=== PATIENT | female | born 1970 | race Caucasian/White ===

== ENCOUNTER 2018-09-24 04:21 | Inpatient (IN) | payer OTHER, SELFPAY ==
[2018-09-24] VITALS (22 sets, daily range): BP systolic 85–162; BP diastolic 64–97; PULSE 52–73; RESP 12–24; TEMP 36.4–36.7; O2SAT 93–100; BMI 47.9; BMI 45.6
[2018-09-24] MEDS: Ondansetron 4 MG/2 ML Vial IV (04:25)
[2018-09-24] MEDS: Heparin Injection (Vial) 5,000 UNIT/ML VIAL 4000 UNIT IV (04:26)
--- NOTE | 2018-09-24 04:26 | ED.RN ---
DR CRUZ AT BEDSIDE REPORT TO SUPERVISOR TYPE DISK QUALITY CONTROL
[2018-09-24] MEDS: TICAGRELOR 90 MG TABLET 180 MG PO (04:30)
--- NOTE | 2018-09-24 04:31 | RAD_ITS ---
STUDY: X-RAY CHEST REASON FOR EXAM: Female, 48 years old. Chest pain TECHNIQUE: Single frontal view of the chest. COMPARISON: None. FINDINGS: The lungs are clear and expanded. There is no demonstrated pleural abnormality. Prominent cardiac silhouette. Normal mediastinum and rupa. Normal visualized pulmonary arteries. Normal visualized aortic arch and descending thoracic aorta. Normal visualized thoracic spine. Normal visualized ribs, clavicles, and shoulders. There is no demonstrated abnormality of the visualized soft tissue structures of the upper abdomen. RAD/Chest 1 View (Portable) IMPRESSION: No acute pulmonary findings. Electronically Signed: Parth Fletcher MD at 5:00 EST Tel , Service support ,
--- NOTE | 2018-09-24 04:32 | ED.VISSUMM ---
- ER Visit Summary Date of Service: 09/24/18 Chief Complaint: Chest pain History of Present Illness: The patient is a 48 F who presents as a prehospital activation of code STEMI with severe chest pain. Onset was 1 hour prior to arrival. Pain is substernal and radiates into bilateral arms and left jaw as well as back. Pain is currently 6 out of 10. Patient was given aspirin by EMS. She has not had any nitro. EKG suggested an inferior STEMI, thus EMS did not give nitro prehospital. Repeat prehospital EKG was concerning for anterolateral STEMI. Patient has history of prior STEMI with stent placement. She is not on Plavix at this time. Also history of hypertension, smoking, and intestines on the outside when born. Physical Examination: Vital signs: afebrile, hypotensive and bradycardic, 93% on nasal cannula General: well nourished, well developed, obese, in moderate distress Skin: warm, dry, no rash, mild perioral and acral cyanosis HEENT: normocephalic and atraumatic; PERRL, EOMI, moist mucous membranes Cardiovascular: Bradycardic rate and rhythm without murmurs, no peripheral edema, dopplerable pulses all distal extremities Respiratory: lungs are clear to auscultation bilaterally, no rales, rhonchi or wheezing Abdominal: Abdomen is soft, nontender with normoactive bowel sounds, no guarding or rebound, no masses, multiple surgical scars MSK: Moves all extremities, no deformities, normal strength Neuro: Awake and alert, oriented ?4. No facial droop, sensation and motor function intact and symmetric Test Results: [] Emergency Department Course and Treatment: Patient's prehospital EKG was suggestive of an inferior ST elevation myocardial infarction, however the tracing was poor. A repeat EKG by prehospital EMS showed significant ST elevation in V1 through V6 with reciprocal depression in the inferior leads. Also elevation in aVL. Dr. Correa was consulted. STEMI was called and Sas Administrator activated. Patient was given Brilinta and heparin bolus. Repeat EKG while awaiting Sas Administrator showed a sinus rhythm, rate of 58, ST depression in V1 and ST elevation in 2 and aVF. Patient was elevuated by Dr. Correa in the ED and transferred to the Sas Administrator for definitive intervention. Critical care time of 35 minutes for initial evaluation and stabilization, interpretation of prehospital EKGs, coordination of care, discussion with hospitalist and cardiac interventionalist, and documentation. Treatment Plan: [] Disposition: [] Impression: STEMI This note was generated with Zoomdata dictation software. It may contain incorrect words, spelling, and punctuation that were not noted in review of the chart prior to signing ED Disposition - Plan for ED Patient: Disposition: Acute Care Hospital [facility] Chief Complaint: Chest Pain
--- NOTE | 2018-09-24 04:35 | ED.RN ---
UNABLE TO OBTAIN PEDAL PULSES AT THIS TIME, RADIAL PULSES FELT
--- NOTE | 2018-09-24 04:37 | ED.DCSUM_ITS ---
- ER Visit Summary Date of Service: 09/24/18 Chief Complaint: Chest pain History of Present Illness: The patient is a 48 F who presents as a prehospital activation of code STEMI with severe chest pain. Onset was 1 hour prior to arrival. Pain is substernal and radiates into bilateral arms and left jaw as w ell as back. Pain is currently 6 out of 10. Patient was given aspirin by EMS. She has not had any nitro. EKG suggested an inferior STEMI, thus EMS did not give nitro prehospital. Repeat prehospital EKG was concerning for anterolateral STEMI. Patient has history of prior STEMI with stent placement. She is not on Plavix at this time. Also history of hypertension, smoking, and intestines on the outside when born. Physical Examination: Vital signs: afebrile, hypotensive and bradycardic, 93% on nasal cannula General: well nourished, well developed, obese, in moderate distress Skin: warm, dry, no rash, mild perioral and acral cyanosis HEENT: normocephalic and atraumatic; PERRL, EOMI, moist mucous membranes Cardiovascular: Bradycardic rate and rhythm without murmurs, no peripheral edema, dopplerable pulses all distal extremities Respiratory: lungs are clear to auscultation bilaterally, no rales, rhonchi or wheezing Abdominal: Abdomen is soft, nontender with normoactive bowel sounds, no guarding or rebound, no masses, multiple surgical scars MSK: Moves all extremities, no deformities, normal strength Neuro: Awake and alert, oriented ?4. No facial droop, sensation and motor function intact and symmetric Test Results: [] Emergency Department Course and Treatment: Patient's prehospital EKG was suggestive of an inferior ST elevation myocardial infarction, however the tracing was poor. A repeat EKG by prehospital EMS showed significant ST elevation in V1 through V6 with reciprocal depression in the inferior leads. Also elevation in aVL. Dr. Correa was consulted. STEMI was called and Technical Product Manager activated. Patient was given Brilinta and heparin bolus. Repeat EKG while awaiting Technical Product Manager showed a sinus rhythm, rate of 58, ST depression in V1 and ST elevation in 2 and aVF. Patient was elevuated by Dr. Correa in the ED and transferred to the Technical Product Manager for definitive intervention. Critical care time of 35 minutes for initial evaluation and stabilization, interpretation of prehospital EKGs, coordination of care, discussion with hospitalist and cardiac interventionalist, and documentation. Treatment Plan: [] Disposition: [] Impression: STEMI This note was generated with Jaxtr dictation software. It may contain incorrect words, spelling, and punctuation that were not noted in review of the chart prior to signing ED Disposition - Plan for ED Patient: Disposition: Acute Care Hospital [facility] Chief Complaint: Chest Pain
--- NOTE | 2018-09-24 04:40 | ED.RN ---
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
--- NOTE | 2018-09-24 04:45 | HP.PCM_ITS ---
Problem List (1) STEMI (ST elevation myocardial infarction) Status: Acute History of Present Illness Date of Admission: 09/24/18 Chief Complaint: CHEST PAIN The patient is a 48 year old F with a significant history of epilepsy; CAD status post coronary stents about 3 and half years ago who was brought to the Emergency Department by the squad because of excruciating substernal episodic sharp chest pain that radiated to her left jaw and into her bilateral arms and back. Associated with her symptoms abdominal pain, nausea, vomiting, diaphoresis and shortness of breath. Her symptoms started about an hour prior to presentation. She was given 4 baby aspirin by the paramedics. Because initial EKG showed likely inferior ID nitroglycerin was not given by paramedics. Subsequent EKG showed anterior ST elevation. STEMI alert was called. At Emergency department patient's systolic blood pressure was found to be 96; and a pulse was 54. IV bolus of normal saline was started at emergency department. Patient was given heparin; and Brilinta. Patient was seen at emergency department by import specialist Dr. Correa. EKG done at our emergency department showed sinus bradycardia without ST elevations. Patient was sent to the [facility]. Patient is on home aspirin. She reported that she used to be on Plavix but her import specialist,Dr. Shea, took her off Plavix after 1 year of her ID. Patient reported that her mother had a heart attack in her sixties. Past Medical History Medical History: Medical History (Last Reviewed 09/24/18 @ 05:07 by Reymundo Kerr MD) Epilepsy G40.909 Allergies codeine Adverse Reaction (Verified 09/24/18 04:29) Other CHEST PAINS Home Medications: Ambulatory Orders Medication Instructions Recorded Aspirin 81 mg PO DAILY 09/24/18 Atorvastatin Calcium 80 mg PO DAILY 09/24/18 Carvedilol 6.25 mg PO DAILY 09/24/18 Hydroxyzine HCl 10 mg PO PRN PRN 09/24/18 Isosorbide Mononitrate [Imdur] 60 mg PO DAILY 09/24/18 Levetiracetam 500 mg PO BID 09/24/18 Surgical History: Surgical History (Last Updated 09/24/18 @ 05:07 by Reymundo Kerr MD) History of heart artery stent Z95.5 Surgical History: appendectomy, - - Patient reported that at all her abdominal organs were outside so she had surgery to put her organs back. (?omaphalocele/gastroschisis) Lives: Spouse/ Significant Other Smoking Status: Current every day smoker Tobacco Use: Cigarettes Alcohol: None - *Family History Maternal Family History: Family History (Last Updated 09/24/18 @ 05:11 by Reymundo Kerr MD) Other Myocardial infarction Review of Systems Constitutional: Denies: Chills, Fever, Weight Change HEENT: Denies: Head Aches, Sinus Congestion, Sinus Drainage Cardiovascular: Reports: Chest Pain. Denies: Palpitations Respiratory: Reports: Shortness of Breath. Denies: Cough Gastrointestinal: Reports: Abdominal Pain, Nausea, Vomiting Genitourinary: Denies: Dysuria Musculoskeletal: Reports: Back Pain. Denies: Joint Pain, Joint Tenderness Skin: Denies: Rash, Wounds Neurological: Denies: Numbness, Tingling, Focal weakness Psychiatric: Denies: Anxiety, Depression, Homicidal Ideations, Suicidal Ideations Hematologic/ Lymphatic: Denies: Easy Bruising, Easy Bleeding VTE Information - Inpt Only VTE Present on Admission: No VTE Mechan Device Prophylaxis: None VTE Pharm Prophylaxis ordered?: No Reason prophylaxis not ordered:: Treatment Not Indicated - Received heparin for STEMI Patient Problems: Active and Suspected Problems (Last Reviewed 09/24/18 @ 05:07 by Reymundo Kerr MD) STEMI (ST elevation myocardial infarction) (Acute) - Physical Exam General: Alert, Oriented x3, Cooperative HEENT: Atraumatic, Normocephalic Neck: Supple, No JVD, Negative Carotid Bruits Lungs: Clear to auscultation, Normal air movement, Short of Breath Cardiovascular: No murmurs, Bradycardic Abdomen: Bowel Sounds Present, Soft, Non Tender Extremities: No edema, Capillary Refill Less than 3 Seconds Skin: No rashes, No breakdown Musculoskeletal: No Muscle Wasting Neurological: Neuro grossly intact Psych/Mental Status: Anxious Vital Signs Temp Pulse Resp BP Pulse Ox 98.1 F 56 L 17 96/85 H 100 09/24/18 04:32 09/24/18 04:32 09/24/18 04:32 09/24/18 04:32 09/24/18 04:34 Oxygen Flow Rate (L/min) 2 Oxygen Delivery Method Nasal Cannula Weight: 143.1 kg Body Mass Index (BMI) 47.9 Laboratory Tests Past 24 Hrs 09/24/18 09/24/18 09/24/18 04:35 04:35 04:35 WBC Pending RBC Pending Hgb Pending Hct Pending MCV Pending MCH Pending MCHC Pending RDW Pending RDW Differential Pending Plt Count Pending Neut % (Auto) Pending Absolute Neuts (auto) Pending Total Counted Pending PT Pending INR Pending APTT Pending Sodium Pending Potassium Pending Chloride Pending Carbon Dioxide Pending Anion Gap Pending BUN Pending Creatinine Pending Est GFR (MDRD) Af Amer Pending Est GFR (MDRD) Non-Af Pending BUN/Creatinine Ratio Pending Glucose Pending Calcium Pending Troponin I Pending Serum , Qual 09/24/18 04:35 WBC RBC Hgb Hct MCV MCH MCHC RDW RDW Differential Plt Count Neut % (Auto) Absolute Neuts (auto) Total Counted PT INR APTT Sodium Potassium Chloride Carbon Dioxide Anion Gap BUN Creatinine Est GFR (MDRD) Af Amer Est GFR (MDRD) Non-Af BUN/Creatinine Ratio Glucose Calcium Troponin I Serum , Qual Pending Assessment/Plan All Active Problems (Last Reviewed 09/24/18 @ 05:07 by Reymundo Kerr MD) STEMI (ST elevation myocardial infarction) (Acute) The patient is a 48 year old F with a significant history of epilepsy; tobacco abuse; CAD status post coronary stents about 3 and half years ago; and a family history of ID who was brought by the squad for Chest pain; and ST elevation and who was subsequently rushed to the cardiac lab for cardiac catheterization. STEMI At arrival patient received heparin and Brilinta. She did receive 4 baby aspirin from paramedics. Within 10-20 minutes patient was sent to the [facility]. Home aspirin and high intensity Lipitor reordered Further management will be based upon results of cardiac and cardiology recommendation. Cardiology is following. Epilepsy Nurse reported that med list given by patient's had Keppra listed. Keppra re-ordered. However patient reported that she is taking Dilantin which was not on her med list. Recommend following up with patient. Seizure precautions. Tobacco abuse Due to need to farley patient to Cardiac suite for cath, tobacco cessation was not discussed. Recommend discussing tobacco cessation and management when patient returns from cardiac cath. DVT prophylaxis Not indicated at this time. Patient received heparin for STEMI. Code Visit Inpatient E&M: 07327 Init Hosp L3
[2018-09-24] MEDS: 0.9% Normal Saline 1,000 ML 999 ML IV (04:53)
[2018-09-24 05:46] LABS: International Normalized Ratio 1.1; Prothrombin Time (Protime)PT. 14.6 SECONDS (11.7-14.9)
[2018-09-24 05:47] LABS: Absolute Lymphocyte Count 1.72 X10^3/ul (0.83-4.51); Absolute Neutrophil Count 5.5 X10^3/uL (2.0-7.7); Basophil# 0.01 X10^3/uL; Basophil% 0.1 % (0-1); Eosinophil# 0.09 X10^3/uL; Eosinophils% 1.1 % (0-5); Hematocrit 43.5 % (37-47); Hemoglobin 13.9 g/dl (12.0-15.0); Lymphocyte # 1.72 X10^3/ul (4.0); Lymphocyte % 21.5 % (19-41); Mean Corpuscular Hgb 28.5 pg (27.0-32.0); Mean Corpuscular Volume 89.1 fL (81-99); Mean Platelet Vol. 9.7 fl (6.2-12.0); Monocyte# 0.64 X10^3/uL; Neutrophil # 5.52 X10^3/uL (2.7-7.7); Neutrophil % 69.2 % (47-70); Platelet Count 204 K/mm3 (150-450); RBC Distribution Width CV 13.8 % (11.6-14.6); RBC Distribution Width SD 45.3 fl (35.1-43.9); Red Blood Count 4.88 M/mm3 (4.2-5.4)
[2018-09-24 05:48] LABS: Partial Thromboplast Time 89.3 Seconds (24.1-36.2)
[2018-09-24 05:49] LABS: POSITIVE COUNT NO; POSITIVE DIFFERENTIAL NO; POSITIVE MORPHOLOGY NO
--- NOTE | 2018-09-24 05:52 | PCM.CONS.C ---
Problem List (1) STEMI (ST elevation myocardial infarction) Status: Acute Reason for Consult Date of Consultation: 09/24/18 History of Present Illness: The patient is a 48 year old F past medical history is significant for coronary artery disease status post an RI about 3 years ago. She also has history of nicotine dependence. She presented to the emergency room after EMS was called at home for chest pain. Second EKG done by EMS showed changes consistent with acute anterior myocardial infarction. Subsequently a STEMI alert was called. Patient describes her pain as anterior chest pressure. She describes it as being similar to her pain when she had her heart attack 3 years ago. There is radiation to the left side of the jaw and both shoulders. Positive associated shortness of breath. Some nausea. Vomiting x1 at home. No hematemesis. EKG upon arrival in the emergency room showed resolution of ST elevation. However as she was continuing to have chest pain, she was recommended emergent coronary angiography and possible revascularization. [] Past Medical History Allergies/Adverse Reactions: Allergies codeine Adverse Reaction (Verified 09/24/18 04:29) Other CHEST PAINS Home Medications: Ambulatory Orders Medication Instructions Recorded Aspirin 81 mg PO DAILY 09/24/18 Atorvastatin Calcium 80 mg PO DAILY 09/24/18 Carvedilol 6.25 mg PO DAILY 09/24/18 Hydroxyzine HCl 10 mg PO PRN PRN 09/24/18 Isosorbide Mononitrate [Imdur] 60 mg PO DAILY 09/24/18 Levetiracetam 500 mg PO BID 09/24/18 Surgical History: appendectomy, - - Patient reported that at all her abdominal organs were outside so she had surgery to put her organs back. (?omaphalocele/gastroschisis) - *Family History Maternal Family History: Family History (Last Updated 09/24/18 @ 05:11 by Reymundo Kerr MD) Other Myocardial infarction Lives: Spouse/ Significant Other Smoking Status: Current every day smoker Tobacco Use: Cigarettes Alcohol: None Review of Systems - Review of Systems General: Denies: Fever, Chills, Weight Loss HEENT: Denies: Sore Throat Cardiovascular: Reports: Chest Discomfort at Rest, Shortness of Breath at Rest. Denies: PND, Peripheral Edema Respiratory: Denies: Cough Gastrointestinal: Reports: Nausea, Emesis. Denies: Abdominal Discomfort, Jaundice Neurological: Reports: Seizure. Denies: History of TIA, History of CVA Hematologic/ Lymphatic: Denies: Easy Brusing, Easy Bleeding Subjectve: Appeared anxious. Objective: Vital Signs Temp Pulse Resp BP Pulse Ox 98.1 F 57 L 16 96/65 100 09/24/18 04:32 09/24/18 04:51 09/24/18 04:51 09/24/18 04:51 09/24/18 04:51 Oxygen Flow Rate (L/min) 2 Oxygen Delivery Method Nasal Cannula Weight: 143.1 kg Body Mass Index (BMI) 47.9 General: Awake, Alert, Oriented x 3, In Acute Distress, Obese HEENT: Atraumatic Oral: Moist Mucosa Neck: Supple Lungs: Diminished Fred Bases Cardiovascular: Regular Rhythm, Normal S1, Normal S2 Vascular: - - Feeble radial and bilateral femoral pulses. Unable to palpate dorsalis pedis bilaterally Abdomen: Bowel Sounds Present, Soft, Non Tender Extremities: No edema Neurological: No Focal Motor or Sensory Deficit Psych/Mental Status: Anxious 09/24/18 04:35: WBC Cancelled, Corrected WBC Cancelled, RBC Cancelled, Hgb Cancelled, Hct Cancelled, MCV Cancelled, MCH Cancelled, MCHC Cancelled, RDW Cancelled, RDW Differential Cancelled, Plt Count Cancelled, MPV Cancelled, Immature Gran % (Auto) Cancelled, Neut % (Auto) Cancelled, Lymph % (Auto) Cancelled, Rutherford % (Auto) Cancelled, Eos % (Auto) Cancelled, Baso % (Auto) Cancelled, Absolute Neuts (auto) Cancelled, Total Counted Cancelled, Neutrophils % (Manual) Cancelled, Band Neutrophils % Cancelled, Lymphocytes % (Manual) Cancelled, Monocytes % (Manual) Cancelled, Eosinophils % (Manual) Cancelled, Basophils % (Manual) Cancelled, Metamyelocytes % Cancelled, Myelocytes % Cancelled, Promyelocytes % Cancelled, Blast Cells % Cancelled, Plasma Cell % (Manual) Cancelled, Other Cells % Cancelled 09/24/18 04:35: PT Cancelled, INR Cancelled, APTT Cancelled 09/24/18 04:35: Sodium Cancelled, Potassium Cancelled, Chloride Cancelled, Carbon Dioxide Cancelled, Anion Gap Cancelled, BUN Cancelled, Creatinine Cancelled, Est GFR (MDRD) Af Amer Cancelled, Est GFR (MDRD) Non-Af Cancelled, BUN/Creatinine Ratio Cancelled, Glucose Cancelled, Calcium Cancelled, Troponin I Cancelled 09/24/18 05:30: PT 14.6, INR 1.1, APTT 89.3 H 09/24/18 05:30: WBC 8.0, RBC 4.88, Hgb 13.9, Hct 43.5, MCV 89.1, MCH 28.5, MCHC 32.0, RDW 13.8, RDW Differential 45.3 H, Plt Count 204, MPV 9.7, Immature Gran % (Auto) 0.100, Neut % (Auto) 69.2, Lymph % (Auto) 21.5, Rutherford % (Auto) 8.0, Eos % (Auto) 1.1, Baso % (Auto) 0.1, Absolute Neuts (auto) 5.5, Total Counted Not Reportable Rhythm: Normal sinus rhythm EKG: EKG done in the field by EMS showed changes consistent with acute anterior myocardial infarction. These changes had resolved by the time another EKG was done in the emergency room ECHO: Stress Test: Cardiac Cath: PCI: CT Surgery: Holter monitor: EPS: PPM: CXR: Chest CT Scan: Assessment/Plan 1. Acute ST elevation myocardial infarction. Transient ST elevations. Resolved by the time patient presented to the emergency room. Cardiac catheterization revealed patent stent to the left anterior descending artery. No flow-limiting lesions were noted in either the left or the right system. Most likely transient coronary vasospasm. Continue aspirin and beta-kim. Start on calcium channel blockers. Continue nitrates. 2. Check D-dimers. If elevated, then consider CT scan of the chest to rule out PE. Follow as per internal medicine 3. Nicotine dependence. Counseled to quit. 4. History of hypertension 5. Obesity. Needs to lose weight. 6. History of dyslipidemia. Manage as per internal medicine
[2018-09-24 05:57] LABS: Anion Gap 11 (5-15); BUN 16 mg/dL (7-18); BUN/Creat Ratio 25.3 RATIO (10-20); Calcium,Total 8.5 mg/dL (8.5-10.1); Chloride 111 mmol/L (98-107); Creatinine, Serum 0.63 mg/dL (0.55-1.02); EST Glomerular Filtration Rate 106 mL/min (>60); Est Glom Filt Rate - Afr Amer 128 mL/min (>60); Estimated Creatinine Clearance 108.97 ml/min; Glucose 117 mg/dL (74-106); Potassium 3.4 mmol/L (3.5-5.1); Sodium Level 142 mmol/L (136-145)
[2018-09-24 06:00] LABS: D-Dimer Quantitative (DVT/PE) < 0.27 FEU/ug/m (0.27-0.49)
--- NOTE | 2018-09-24 06:08 | CL.D_ITS ---
Patient Name: LINSEY CLARK Study Date: 09/24/2018 Performing: Nacho Correa MD Ht: 68.11 inches 173 cm : 1970 Wt: 315.26 lbs 143 kg Age: 48 Gender: female BSA: 2.48 PROCEDURE(S) PERFORMED NZ99-AMM/COR/LV CLINICAL PROFILE AND INDICATIONS Heart Failure: None CAD Presentations: STEMI. Symptom onset Date/Time: 09/24/2017 Time Not Available CONCLUSIONS 30% Mid LAD 50% Mid LCX 30% distal mid RCA LVEF 50% Transient EKG changes most likely secondary tocoronary vasospasm RECOMMENDATIONS Medical therapy DESCRIPTION OF PROCEDURE The patient arrived to the procedure lab. The risks and benefits of the procedure as well as a full d escription of our services here and current unavailability of surgical backup were fully explained to the patient and/or their significant other prior to the catheterization. The Timeout was completed, verifying the correct patient and procedure. The patient's procedural site was prepped and draped in the usual fashion. Local anesthetic was given subcutaneously to right radial region with Lidocaine 2% . Local anesthetic was given subcutaneously to right groin region with Lidocaine 2%. Local anesthetic was given subcutaneously to right groin region with Lidocaine 2%. Using a modified Seldinger techniq ue, arterial access was obtained via the right femoral artery, a 6Fr sheath was inserted. Left Coron sunny Artery selective angiography was performed in multiple views using a 5 Fr. JL4 catheter. Right Co ronary Artery selective angiography was then performed in multiple views using a 5 Fr. JR 4 catheter. LV to AO pullback pressures were then recorded.The arterial sheath was pulled and a Mynx closure device was deployed for hemostasis CORONARY ANGIOGRAPHY DOMINANCE: Right Dominant LEFT HEART ASSESSMENT Left Ventricular Ejection Fraction: by LV Gram 50 % LVEDP: 10 mmHg LEFT MAIN: Angiographically normal LEFT ANTERIOR DECENDING ARTERY: Stent to LAD patent. Mid LAD 30% CIRCUMFLEX ARTERY: 50% Mid LCX RIGHT CORONARY ARTERY: 30% distal mid RCA COMPLICATIONS No Complications PROCEDURE MEDICATIONS Versed 1 mg IV Versed 1 mg IV Oxygen: 2 L/min via nasal cannula Nitro Tab 0.4 mg PO 09/24/2018 05:00:18 Nitro 200 mcg IC 09/24/2018 05:18:27 SUMMARY OF HEMODYNAMIC DATA Time AIR REST ECG 04:46:46 LV 121/0, 13 05:14:52 LV 122/-1, 11 05:15:00 LVp 110/-2, 14 05:16:09 AOp 112/57 (79) 05:16:14 AO 130/61 (87) SA 05:17:06 Signed By Nacho Correa MD On 09/24/2018 6:29:55 AM Signed By Nacho Correa MD On 09/24/2018 06:07:31 Nacho Correa MD
--- NOTE | 2018-09-24 06:33 | EKG12_ITS ---
Test Reason : POST CATH Blood Pressure : / mmHG Vent. Rate : 068 BPM Atrial Rate : 068 BPM P-R Int : 164 ms QRS Dur : 080 ms QT Int : 406 ms P-R-T Axes : 056 002 010 degrees QTc Int : 431 ms Normal sinus rhythm with sinus arrhythmia Normal ECG When compared with ECG of 24-SEP-2018 04:23, MANUAL COMPARISON REQUIRED, DATA IS UNCONFIRMED Confirmed by MAKSIM KIMBALL, CARLITO ([id number]), photograph editor SHARRON FLAHERTY ([id number]) on 09/29/2018 5:41:57 PM Referred By: Nacho Correa Confirmed By:CARLITO SCHAEFFER MD
--- NOTE | 2018-09-24 06:33 | EKG12_ITS ---
Test Reason : STEMI Blood Pressure : / mmHG Vent. Rate : 058 BPM Atrial Rate : 058 BPM P-R Int : 116 ms QRS Dur : 090 ms QT Int : 418 ms P-R-T Axes : 036 043 052 degrees QTc Int : 410 ms Sinus bradycardia Otherwise normal ECG Confirmed by MAKSIM KIMBALL, CARLITO ([id number]), technical writer and editor SHARRON FLAHERTY ([id number]) on 09/28/2018 10:13:22 AM Referred By: Nacho Correa Confirmed By:CARLITO SCHAEFFER MD
[2018-09-24] MEDS: 0.9% Normal Saline 1,000 ML 150 ML IV (06:45)
[2018-09-24 06:56] LABS: Pregnancy, Serum, hCG Quali. NEGATIVE Negative (0-9 Nonpreg)
[2018-09-24 07:00] LABS: ACT Activated Clotting Time 158 sec (74-137)
[2018-09-24] MEDS: Aspirin 81 MG TAB.CHEW PO (09:59)
[2018-09-24] MEDS: Carvedilol 6.25 MG Tablet PO ×2 (10:00→21:33)
[2018-09-24] MEDS: levETIRAcetam 500 MG Tablet PO ×2 (10:00→21:33)
[2018-09-24] MEDS: amLODIPine 5 MG Tablet PO (10:00)
[2018-09-24] MEDS: Clopidogrel Bisulfate 75 MG Tablet PO (10:01)
--- NOTE | 2018-09-24 13:10 | PCM.PN.HOSP ---
Patient Problems: Active and Suspected Problems (Last Reviewed 09/24/18 @ 05:07 by Reymundo Kerr MD) STEMI (ST elevation myocardial infarction) (Acute) Subjective: Patient seen and examined. She was admitted in the early hours of this morning with a complaint of chest pain. Initial EKG showed ST elevation and she is been managed for STEMI. He went straight to the [facility] where cardiac cath showed no active blockage. It is thought that his symptoms were due to coronary vasospasm. Patient was admitted in the ICU after the cath. She has no complaints and feels well. She has not had a recurrence of the chest pain since admission. She denies any palpitations or dizziness, abdominal pain, diarrhea vomiting. Review of systems otherwise negative. Labs and vitals reviewed. Vitals/I&O's: Vital Signs Temp Pulse Resp BP Pulse Ox 97.6 F L 73 22 H 110/79 94 09/24/18 07:30 09/24/18 11:00 09/24/18 11:00 09/24/18 11:00 09/24/18 11:00 Oxygen Flow Rate (L/min) 2 Oxygen Delivery Method Room Air Weight: 308 lb 10.354 oz Body Mass Index (BMI) 45.6 General: Alert, Oriented x3, Cooperative, No apparent distress HEENT: Atraumatic, PERRLA, EOMI, Normocephalic Oral: Moist Mucosa Neck: Supple, No JVD, Negative Carotid Bruits Lungs: Clear to auscultation, Normal air movement, No rhonchi, No wheeze, No rales Cardiovascular: Regular rate, Regular Rhythm, Normal S1, Normal S2, No murmurs Abdomen: Bowel Sounds Present, Soft, Non Tender, Non-Distended, No Hepato-splenomegaly, - - right groin: no swelling or redness; minimal tenderness. Extremities: No clubbing, No cyanosis, No edema, Capillary Refill Less than 3 Seconds Skin: No rashes, No breakdown Musculoskeletal: No Tenderness to Palpation of Joints or Extremities Lymphatic: No Cervical, Supraclavicular, or Inguinal Adenopathy Neurological: Cranial nerves II-XII grossly intact, Neuro grossly intact, Motor Exam 5/5 strength throughout Psych/Mental Status: Normal Affect, Appropriate, Alert and oriented to time, place, person, mood and affect Laboratory Results 09/24/18 04:35: WBC Cancelled, Corrected WBC Cancelled, RBC Cancelled, Hgb Cancelled, Hct Cancelled, MCV Cancelled, MCH Cancelled, MCHC Cancelled, RDW Cancelled, RDW Differential Cancelled, Plt Count Cancelled, MPV Cancelled, Immature Gran % (Auto) Cancelled, Neut % (Auto) Cancelled, Lymph % (Auto) Cancelled, [place] % (Auto) Cancelled, Eos % (Auto) Cancelled, Baso % (Auto) Cancelled, Absolute Neuts (auto) Cancelled, Absolute Lymphs (auto) Cancelled, Total Counted Cancelled, Neutrophils % (Manual) Cancelled, Band Neutrophils % Cancelled, Lymphocytes % (Manual) Cancelled, Monocytes % (Manual) Cancelled, Eosinophils % (Manual) Cancelled, Basophils % (Manual) Cancelled, Metamyelocytes % Cancelled, Myelocytes % Cancelled, Promyelocytes % Cancelled, Blast Cells % Cancelled, Plasma Cell % (Manual) Cancelled, Other Cells % Cancelled, Nucleated RBCs/100 WBC Cancelled, Differential Comment Cancelled, Diff Path Review Cancelled, Hypersegmented Neuts Cancelled, Atypical Lymphocytes Cancelled, Reactive Lymphocytes Cancelled, Smudge Cells Cancelled, Toxic Granulation Cancelled, Dohle Bodies Cancelled, Nidia Rods Cancelled, Platelet Estimate Cancelled, Plt Morphology Comment Cancelled, RBC Morphology Cancelled, Polychromasia Cancelled, Hypochromasia Cancelled, Poikilocytosis Cancelled, Basophilic Stippling Cancelled, Anisocytosis Cancelled, Microcytosis Cancelled, Macrocytosis Cancelled, Spherocytes Cancelled, Sickle Cells Cancelled, Target Cells Cancelled, Tear Drop Cells Cancelled, Ovalocytes Cancelled, Stomatocytes Cancelled, [place] Bodies Cancelled, [place] Cells Cancelled, Bite Cells Cancelled, Acanthocytes (Spur) Cancelled, Rouleaux Cancelled, Schistocytes Cancelled 09/24/18 04:35: PT Cancelled, INR Cancelled, APTT Cancelled 09/24/18 04:35: Sodium Cancelled, Potassium Cancelled, Chloride Cancelled, Carbon Dioxide Cancelled, Anion Gap Cancelled, BUN Cancelled, Creatinine Cancelled, Estim Creat Clear Calc Cancelled, Est GFR (MDRD) Af Amer Cancelled, Est GFR (MDRD) Non-Af Cancelled, BUN/Creatinine Ratio Cancelled, Glucose Cancelled, Calcium Cancelled, Troponin I Cancelled 09/24/18 04:35: Serum , Qual Cancelled 09/24/18 05:11: Activated Clotting Time 158 H 09/24/18 05:30: PT 14.6, INR 1.1, APTT 89.3 H 09/24/18 05:30: WBC 8.0, RBC 4.88, Hgb 13.9, Hct 43.5, MCV 89.1, MCH 28.5, MCHC 32.0, RDW 13.8, RDW Differential 45.3 H, Plt Count 204, MPV 9.7, Immature Gran % (Auto) 0.100, Neut % (Auto) 69.2, Lymph % (Auto) 21.5, [place] % (Auto) 8.0, Eos % (Auto) 1.1, Baso % (Auto) 0.1, Absolute Neuts (auto) 5.5, Absolute Lymphs (auto) 1.72, Total Counted Not Reportable 09/24/18 05:30: Sodium 142, Potassium 3.4 L, Chloride 111 H, Carbon Dioxide 20.0 L, Anion Gap 11, BUN 16, Creatinine 0.63, Estim Creat Clear Calc 108.97, Est GFR (MDRD) Af Amer 128, Est GFR (MDRD) Non-Af 106, BUN/Creatinine Ratio 25.3 H, Glucose 117 H, Calcium 8.5, Troponin I 0.031 09/24/18 05:30: Serum , Qual NEGATIVE 09/24/18 05:30: D-Dimer Quant (PE/DVT) < 0.27 L Current Medications Amlodipine Besylate (Norvasc) 5 mg PO DAILY [facility] Last Admin: 09/24/18 10:00 Dose: 5 mg [facility]ir[facility], [facility]) [facility] Last Admin: 09/24/18 09:59 Dose: 81 mg Atorvastatin Calcium (Lipitor) 80 mg PO QHS [facility] Atropine Sulfate () 0.5 mg IV UD PRN PRN Reason: HR <50 bpm Carvedilol (Coreg) 6.25 mg PO BID [facility] Last Admin: 09/24/18 10:00 Dose: 6.25 mg Clopidogrel Bisulfate (Plavix) 75 mg PO DAILY [facility] Last Admin: 09/24/18 10:01 Dose: 75 mg Sodium Chloride () 250 mls @ 15 mls/hr IV .[id number] PRN PRN Reason: SALINE FLUSH Sodium Chloride () 1,000 mls @ 150 mls/hr IV .[id number] [facility] Stop: 09/24/18 13:12 Last Admin: 09/24/18 06:45 Dose: 150 mls/hr Levetiracetam (Keppra Tablet) 500 mg PO BID [facility] Last Admin: 09/24/18 10:00 Dose: 500 mg Ondansetron HCl (Zofran) 4 mg IV Q8H PRN PRN PRN Reason: NAUSEA/VOMITING Sodium Chloride () 5 - 15 ml IV UD PRN PRN Reason: SALINE FLUSH Sodium Chloride () 500 ml IV BOLUS PRN PRN Reason: VASO-VAGAL PROTOCOL Medical Necessity - Tobacco Use Smoking Status: Current every day smoker Tobacco Use: Cigarettes Assessment/Plan All Active Problems (Last Reviewed 09/24/18 @ 05:07 by Reymundo Kerr MD) STEMI (ST elevation myocardial infarction) (Acute) 1. Chest pain due to possible coronary vasospasm initially admitted for possible STEMI based on EKG showing anterior ST elevation sh was rushed to the [facility] cardiac cath showed no 30% mid LAD, 50% mid left circumflex, 30% distal mid RCA nd LVEF of 50% symptoms most likely due to secondary coronary vasospasm. on carfedilol, aspirn, plavix and statin will benefit from low dose MERI/ARB 2. Seizure disorder: on Keppra. Seizure precautions. Patient also stated she is on Dilantin, but this is not in med rec. 3. Nicotine abuse: counselled to quit smoking. 4. DVT prophylaxis: SCDs. To start heparin tomorrow. Code Visit Inpatient E&M: 11549 Subs Hosp L3
--- NOTE | 2018-09-24 13:21 | PN_ITS ---
Patient Problems: Active and Suspected Problems (Last Reviewed 09/24/18 @ 05:07 by Reymundo Krer MD) STEMI (ST elevation myocardial infarction) (Acute) Subjective: Patient seen and examined. She was admitted in the early hours of this morning with a complaint of chest pain. Initial EKG showed ST elevation and she is been managed for STEMI. He went straight to the [facility] where cardiac cath showed no active blockage. It is thought that his symptoms were due to coronary vasospasm. Patient was admitted in the ICU after the cath. She has no complaints and feels well. She has not had a recurrence of the chest pain since admission. She denies any palpitations or dizziness, abdominal pain, diarrhea vomiting. Review of systems otherwise negative. Labs and vitals reviewed. Vitals/I&O's: Vital Signs Temp Pulse Resp BP Pulse Ox 97.6 F L 73 22 H 110/79 94 09/24/18 07:30 09/24/18 11:00 09/24/18 11:00 09/24/18 11:00 09/24/18 11:00 Oxygen Flow Rate (L/min) 2 Oxygen Delivery Method Room Air Weight: 308 lb 10.354 oz Body Mass Index (BMI) 45.6 General: Alert, Oriented x3, Cooperative, No apparent distress HEENT: Atraumatic, PERRLA, EOMI, Normocephalic Oral: Moist Mucosa Neck: Supple, No JVD, Negative Carotid Bruits Lungs: Clear to auscultation, Normal air movement, No rhonchi, No wheeze, No rales Cardiovascular: Regular rate, Regular Rhythm, Normal S1, Normal S2, No murmurs Abdomen: Bowel Sounds Present, Soft, Non Tender, Non-Distended, No Hepato- splenomegaly, - - right groin: no swelling or redness; minimal tenderness. Extremities: No clubbing, No cyanosis, No edema, Capillary Refill Less than 3 Seconds Skin: No rashes, No breakdown Musculoskeletal: No Tenderness to Palpation of Joints or Extremities Lymphatic: No Cervical, Supraclavicular, or Inguinal Adenopathy Neurological: Cranial nerves II-XII grossly intact, Neuro grossly intact, Motor Exam 5/5 strength throughout Psych/Mental Status: Normal Affect, Appropriate, Alert and oriented to time, place, person, mood and affect Laboratory Results 09/24/18 04:35: WBC Cancelled, Corrected WBC Cancelled, RBC Cancelled, Hgb Cancelled, Hct Cancelled, MCV Cancelled, MCH Cancelled, MCHC Cancelled, RDW Cancelled, RDW Differential Cancelled, Plt Count Cancelled, MPV Cancelled, Immature Gran % (Auto) Cancelled, Neut % (Auto) Cancelled, Lymph % (Auto) Cancelled, [place] % (Auto) Cancelled, Eos % (Auto) Cancelled, Baso % (Auto) Cancelled, Absolute Neuts (auto) Cancelled, Absolute Lymphs (auto) Cancelled, Total Counted Cancelled, Neutrophils % (Manual) Cancelled, Band Neutrophils % Cancelled, Lymphocytes % (Manual) Cancelled, Monocytes % (Manual) Cancelled, Eosinophils % (Manual) Cancelled, Basophils % (Manual) Cancelled, Metamyelocytes % Cancelled, Myelocytes % Cancelled, Promyelocytes % Cancelled, Blast Cells % Cancelled, Plasma Cell % (Manual) Cancelled, Other Cells % Cancelled, Nucleated RBCs/100 WBC Cancelled, Differential Comment Cancelled, Diff Path Review Cancelled, Hypersegmented Neuts Cancelled, Atypical Lymphocytes Cancelled, Reactive Lymphocytes Cancelled, Smudge Cells Cancelled, Toxic Granulation Cancelled, Dohle Bodies Cancelled, Nidia Rods Cancelled, Platelet Estimate Cancelled, Plt Morphology Comment Cancelled, RBC Morphology Cancelled, Polychromasia Cancelled, Hypochromasia Cancelled, Poikilocytosis Cancelled, Basophilic Stippling Cancelled, Anisocytosis Cancelled, Microcytosis Cancelled, Macrocytosis Cancelled, Spherocytes Cancelled, Sickle Cells Cancelled, Target Cells Cancelled, Tear Drop Cells Cancelled, Ovalocytes Cancelled, Stomatocytes Cancelled, [place] Bodies Cancelled, [place] Cells Cancelled, Bite Cells Cancelled, Acanthocytes (Spur) Cancelled, Rouleaux Cancelled, Schistocytes Cancelled 09/24/18 04:35: PT Cancelled, INR Cancelled, APTT Cancelled 09/24/18 04:35: Sodium Cancelled, Potassium Cancelled, Chloride Cancelled, Carbon Dioxide Cancelled, Anion Gap Cancelled, BUN Cancelled, Creatinine Cancelled, Estim Creat Clear Calc Cancelled, Est GFR (MDRD) Af Amer Cancelled, Est GFR (MDRD) Non-Af Cancelled, BUN/Creatinine Ratio Cancelled, Glucose Cancelled, Calcium Cancelled, Troponin I Cancelled 09/24/18 04:35: Serum , Qual Cancelled 09/24/18 05:11: Activated Clotting Time 158 H 09/24/18 05:30: PT 14.6, INR 1.1, APTT 89.3 H 09/24/18 05:30: WBC 8.0, RBC 4.88, Hgb 13.9, Hct 43.5, MCV 89.1, MCH 28.5, MCHC 32.0, RDW 13.8, RDW Differential 45.3 H, Plt Count 204, MPV 9.7, Immature Gran % (Auto) 0.100, Neut % (Auto) 69.2, Lymph % (Auto) 21.5, [place] % (Auto) 8.0, Eos % (Auto) 1.1, Baso % (Auto) 0.1, Absolute Neuts (auto) 5.5, Absolute Lymphs (auto) 1.72, Total Counted Not Reportable 09/24/18 05:30: Sodium 142, Potassium 3.4 L, Chloride 111 H, Carbon Dioxide 20.0 L, Anion Gap 11, BUN 16, Creatinine 0.63, Estim Creat Clear Calc 108.97, Est GFR (MDRD) Af Amer 128, Est GFR (MDRD) Non-Af 106, BUN/Creatinine Ratio 25.3 H, Glucose 117 H, Calcium 8.5, Troponin I 0.031 09/24/18 05:30: Serum , Qual NEGATIVE 09/24/18 05:30: D-Dimer Quant (PE/DVT) < 0.27 L Current Medications Amlodipine Besylate (Norvasc) 5 mg PO DAILY [facility] Last Admin: 09/24/18 10:00 Dose: 5 mg [facility], [facility] Last Admin: 09/24/18 09:59 Dose: 81 mg Atorvastatin Calcium (Lipitor) 80 mg PO QHS [facility] Atropine Sulfate () 0.5 mg IV UD PRN PRN Reason: HR <50 bpm Carvedilol (Coreg) 6.25 mg PO BID [facility] Last Admin: 09/24/18 10:00 Dose: 6.25 mg Clopidogrel Bisulfate (Plavix) 75 mg PO DAILY [facility] Last Admin: 09/24/18 10:01 Dose: 75 mg Sodium Chloride () 250 mls @ 15 mls/hr IV .[id number] PRN PRN Reason: SALINE FLUSH Sodium Chloride () 1,000 mls @ 150 mls/hr IV .Q6H40M [facility] Stop: 09/24/18 13:12 Last Admin: 09/24/18 06:45 Dose: 150 mls/hr Levetiracetam (Keppra Tablet) 500 mg PO BID [facility] Last Admin: 09/24/18 10:00 Dose: 500 mg Ondansetron HCl (Zofran) 4 mg IV Q8H PRN PRN PRN Reason: NAUSEA/VOMITING Sodium Chloride () 5 - 15 ml IV UD PRN PRN Reason: SALINE FLUSH Sodium Chloride () 500 ml IV BOLUS PRN PRN Reason: VASO-VAGAL PROTOCOL Medical Necessity - Tobacco Use Smoking Status: Current every day smoker Tobacco Use: Cigarettes Assessment/Plan All Active Problems (Last Reviewed 09/24/18 @ 05:07 by Reymundo Kerr MD) STEMI (ST elevation myocardial infarction) (Acute) 1. Chest pain due to possible coronary vasospasm * initially admitted for possible STEMI based on EKG showing anterior ST elevation * sh was rushed to the [facility] cardiac cath showed no 30% mid LAD, 50% mid left circumflex, 30% distal mid RCA nd LVEF of 50% * symptoms most likely due to secondary coronary vasospasm. * on carfedilol, aspirn, plavix and statin * will benefit from low dose MERI/ARB * 2. Seizure disorder: on Keppra. Seizure precautions. Patient also stated she is on Dilantin, but this is not in med rec. 3. Nicotine abuse: counselled to quit smoking. 4. DVT prophylaxis: SCDs. To start heparin tomorrow. Code Visit Inpatient E&M: 53322 Subs Hosp L3
[2018-09-24] MEDS: Atorvastatin Calcium 80 MG Tablet PO (21:32)
[2018-09-25 03:11] VITALS: PULSE 64
[2018-09-25 03:26] VITALS: BP 107/69; PULSE 69; RESP 17; TEMP 36.6; O2SAT 98
--- NOTE | 2018-09-25 06:33 | EKG12_ITS ---
Test Reason : AM EKG Blood Pressure : / mmHG Vent. Rate : 054 BPM Atrial Rate : 054 BPM P-R Int : 152 ms QRS Dur : 078 ms QT Int : 434 ms P-R-T Axes : 051 010 -10 degrees QTc Int : 411 ms Sinus bradycardia Otherwise normal ECG When compared with ECG of 24-SEP-2018 07:07, MANUAL COMPARISON REQUIRED, DATA IS UNCONFIRMED Confirmed by MAKSIM KIMBALL, CARLITO ([id number]), writer editor SHARRON FLAHERTY ([id number]) on 09/29/2018 5:36:52 PM Referred By: Nacho Correa Confirmed By:CARLITO SCHAEFFER MD
[2018-09-25 06:41] LABS: Absolute Lymphocyte Count 2.39 X10^3/ul (0.83-4.51); Absolute Neutrophil Count 5.4 X10^3/uL (2.0-7.7); Basophil# 0.01 X10^3/uL; Basophil% 0.1 % (0-1); Eosinophil# 0.07 X10^3/uL; Eosinophils% 0.8 % (0-5); Hematocrit 42.3 % (37-47); Hemoglobin 13.5 g/dl (12.0-15.0); Lymphocyte # 2.39 X10^3/ul (4.0); Lymphocyte % 27.7 % (19-41); Mean Corp Hgb Conc 31.9 g/gl (32-36); Mean Corpuscular Hgb 28.8 pg (27.0-32.0); Mean Corpuscular Volume 90.2 fL (81-99); Mean Platelet Vol. 9.9 fl (6.2-12.0); Monocyte# 0.79 X10^3/uL; Monocyte% 9.2 % (0-10); Neutrophil # 5.36 X10^3/uL (2.7-7.7); Neutrophil % 62.1 % (47-70); Platelet Count 200 K/mm3 (150-450); RBC Distribution Width CV 14.1 % (11.6-14.6); Red Blood Count 4.69 M/mm3 (4.2-5.4); White Blood Count 8.6 K/mm3 (4.4-11.0)
[2018-09-25 06:49] LABS: POSITIVE COUNT NO; POSITIVE DIFFERENTIAL NO; POSITIVE MORPHOLOGY NO
[2018-09-25 06:58] LABS: Anion Gap 8 (5-15); BUN 15 mg/dL (7-18); BUN/Creat Ratio 20.5 RATIO (10-20); Calcium,Total 8.1 mg/dL (8.5-10.1); Chloride 112 mmol/L (98-107); Creatinine, Serum 0.73 mg/dL (0.55-1.02); EST Glomerular Filtration Rate 90 mL/min (>60); Est Glom Filt Rate - Afr Amer 109 mL/min (>60); Estimated Creatinine Clearance 97.42 ml/min; Glucose 108 mg/dL (74-106); Sodium Level 142 mmol/L (136-145)
[2018-09-25 07:00] VITALS: PULSE 62
[2018-09-25 07:09] VITALS: O2SAT 96
[2018-09-25 09:18] VITALS: BP 124/69; PULSE 60; RESP 16; TEMP 36.2; O2SAT 97
[2018-09-25] MEDS: Clopidogrel Bisulfate 75 MG Tablet PO (09:27)
[2018-09-25] MEDS: amLODIPine 5 MG Tablet PO (09:27)
[2018-09-25] MEDS: levETIRAcetam 500 MG Tablet PO (09:27)
[2018-09-25] MEDS: Carvedilol 6.25 MG Tablet PO (09:28)
[2018-09-25] MEDS: Aspirin 81 MG TAB.CHEW PO (09:28)
--- NOTE | 2018-09-25 09:35 | CASEMGMT ---
RN NAEEM CASEWORK SPECIALIST CM to room to meet with patient for initial transition planning/care coordination assessment. RN NAEEM introduced self and role at [facility]. Pt voices understanding and consents to assessment at this time. Pt resting in bed in no distress at this time. Pt is A/O at this time and answers all questions appropriately. Care providers, pharmacy, and demographics verified/updated at this time. PCP: Inez Specialists: Johan, Cardiology; Anabela, Neurology Preferred Pharmacy: [facility] Insurance: [employer] Prescription Benefit: Yes Living Will/HPOA: States does not have LW or HCPOA . Interested in more information but states does not want to talk with SW at this time to complete paperwork. Provided information on advanced directives and given Social Service rac card with number to call if chooses in the future to utilize [facility] social work for advanced directive completion. Educated patient that, if patient so chooses, can come back to [facility] and meet with a SW as an outpatient to complete health care advanced directives. Patient expresses understanding. LNOK: , [place]. Living Arrangements: Lives with in one-story home. Independent Transportation: Pt states drives self and states no transportation concerns at this time. DME: Denies using any DME and denies needs. HHC/SNF: Has never been to a SNF or used HHC. Denies needs. Pt wishes to return home and states has no concerns with going home at time of discharge. CM to follow for any discharge planning/needs. Pt voices no further concerns/needs at this time. Advised pt to ask for CM if any further questions/concerns/needs arise. Voices understanding. PLAN: Home Amaya BRYANT RN, CM
--- NOTE | 2018-09-25 10:29 | DCINST_ITS ---
- Discharge Diagnoses Current Active Problems: Current Active and Chronic Problems (Last Reviewed 09/24/18 @ 05:07 by Reymundo Kerr MD) STEMI (ST elevation myocardial infarction) (Acute) You will use the following diet at home:: Cardiac Your food should be the consistency of: Regular Your liquids should be the consistency of: Regular/Thin Discharge Activity: Return to Normal Activity Weight Bearing Status: Weight bearing as tolerated Call your doctor if you observe: Chest pain Instructions: What Is Angina? Additional Instructions: please call Dr London Cain's office to establish PCP relationship Allergies/Adverse Reactions: Allergies codeine Adverse Reaction (Verified 09/24/18 04:29) Other CHEST PAINS Medications to take at Discharge Aspirin 81 mg PO DAILY 09/24/18 Atorvastatin Calcium 80 mg PO DAILY 09/24/18 Carvedilol 6.25 mg PO DAILY 09/24/18 Hydroxyzine HCl 10 mg PO PRN PRN 09/24/18 Isosorbide Mononitrate [Imdur] 60 mg PO DAILY 09/24/18 Levetiracetam 500 mg PO BID 09/24/18 Amlodipine [Norvasc] 5 mg PO DAILY #30 tab 09/25/18 The following prescriptions were given: Amlodipine [Norvasc] 5 mg PO DAILY #30 tab Primary Care Physician: Care Physician,No Primary [NON-STAFF] - Test Results: Test results from this visit will be discussed in further detail at your follow- up appointment, if applicable. Please Follow Up With: Burak Cain MD When: 1 week Please Follow Up With: Jaswant Vásquez MD When: 1-2 weeks Proposed Discharge Date: 09/25/18
--- NOTE | 2018-09-25 10:30 | DS.PCM_ITS ---
Discharge Date and Diagnosis - Problem List Patient Problems: Active and Suspected Problems (Last Reviewed 09/24/18 @ 05:07 by Reymundo Kerr MD) Coronary artery vasospasm (Acute) Date of Admission: 09/24/18 Date of Discharge: 09/25/18 - Primary Discharge Diagnosis Active and Suspected Problems (Last Reviewed 09/24/18 @ 05:07 by Reymundo Kerr MD) CORONARY VASOSPASM Hospital Course and Treatment Imaging Results: Diagnostic Data Chest X-Ray 09/24/18 04:31 IMPRESSION: No acute pulmonary findings. Electronically Signed: Parth Fletcher MD at 5:00 EST Tel , Service support , CARDIOLOGY Operations: None Procedures: Cardiac catheterization Summary of Care Provided: The patient is a 48 year old F with past medical history significant for CAD status post stents, and epilepsy. She was brought in with a complaint of excruciating substernal sharp chest pain which radiated to her left jaw and bilateral arms and back. She had associated abdominal pain, nausea vomiting, diaphoresis and shortness of breath. Symptoms are started about an hour prior to presentation. She received 4 baby aspirin given by the paramedics. Initial EKG showed possible inferior GA. Subsequent EKG showed anterior ST elevation and a STEMI alert was initially called. EKG done on admission in the ED showed no acute ST changes and only showed sinus bradycardia. She was started on heparin and Brilinta and was sent to the [facility] emergently. Cardiac cath showed 30% stenosis of the mid LAD and 50% left circumflex stenosis with 30% mid distal RCA stenosis. Left ventricular EF was 50% and his symptoms were thought to be transient EKG changes most likely due to coronary vasospasm. She was started on amlodipine and was continue her high intensity statin and aspirin. Patient remained stable and chest pain did not recur. She was discharged home on 09/25/2018. 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 Patient seen and examined prior to discharge. She had no complaints and felt well. She denied any fever chills, any cough or chest pain, any shortness of breath, any abdominal pain, any diarrhea vomiting. Review of systems otherwise negative. Labs and vitals reviewed. o/e: Vital Signs Height 5 ft 9 in Weight: 308 lb 10.354 oz Weight in Pounds 308.6 lbs Pulse Ox 97 Temperature 97.1 F Pulse Rate 65 Respiratory Rate 16 Blood Pressure 124/69 Blood Pressure Position Supine [] General: Alert, Oriented x3, Cooperative, No apparent distress HEENT: Atraumatic, PERRLA, EOMI, Normocephalic Oral: Moist Mucosa Neck: Supple, No JVD, Negative Carotid Bruits Lungs: Clear to auscultation, Normal air movement, No rhonchi, No wheeze, No rales Cardiovascular: Regular rate, Regular Rhythm, Normal S1, Normal S2, No murmurs Abdomen: Bowel Sounds Present, Soft, Non Tender, Non-Distended, No Hepato- splenomegaly, - - right groin: no swelling, redness or tenderness Extremities: No clubbing, No cyanosis, No edema, Capillary Refill Less than 3 Seconds Skin: No rashes, No breakdown Musculoskeletal: No Tenderness to Palpation of Joints or Extremities Lymphatic: No Cervical, Supraclavicular, or Inguinal Adenopathy Neurological: Cranial nerves II-XII grossly intact, Neuro grossly intact, Motor Exam 5/5 strength throughout Psych/Mental Status: Normal Affect, Appropriate, Alert and oriented to time, place, person, mood and affect Patient has no PCP and so was referred to Dr London Cain to establish a PCP relationship. She is also to follow up with Dr Vásquez-cardiology. Patient Problems: Active and Suspected Problems (Last Reviewed 09/24/18 @ 05:07 by Reymundo Kerr MD) Coronary artery vasospasm (Acute) - Physical Exam Vital Signs Temp Pulse Resp BP Pulse Ox 97.1 F L 60 16 124/69 H 97 09/25/18 09:18 09/25/18 09:18 09/25/18 09:18 09/25/18 09:18 09/25/18 09:18 Oxygen Flow Rate (L/min) 2 Oxygen Delivery Method Room Air Weight: 308 lb 10.354 oz Body Mass Index (BMI) 45.6 Intake and Output for Last 24 Hours 09/23/18 09/24/18 09/25/18 23:59 23:59 23:59 Intake Total 700 / 700 120 / 120 Balance 700 / 700 120 / 120 Laboratory Tests Past 24 Hrs 09/24/18 09/25/1819 14:10 06:05 06:05 WBC 8.6 RBC 4.69 Hgb 13.5 Hct 42.3 MCV 90.2 MCH 28.8 MCHC 31.9 L RDW 14.1 RDW Differential 46.0 H Plt Count 200 MPV 9.9 Immature Gran % (Auto) 0.100 Neut % (Auto) 62.1 Lymph % (Auto) 27.7 [place] % (Auto) 9.2 Eos % (Auto) 0.8 Baso % (Auto) 0.1 Absolute Neuts (auto) 5.4 Absolute Lymphs (auto) 2.39 Total Counted Not Reportable Sodium 142 Potassium 4.0 Chloride 112 H Carbon Dioxide 22.0 Anion Gap 8 BUN 15 Creatinine 0.73 Estim Creat Clear Calc 97.42 Est GFR (MDRD) Af Amer 109 Est GFR (MDRD) Non-Af 90 BUN/Creatinine Ratio 20.5 H Glucose 108 H Calcium 8.1 L Troponin I 0.065 H Discharge Diet: Low fat/ Low Cholesterol Discharge Activity: Return to Normal Activity Weight Bearing Status: Weight bearing as tolerated Call your doctor if you observe: Chest pain Home Medications: Medications to take at Discharge Aspirin 81 mg PO DAILY 09/24/18 Atorvastatin Calcium 80 mg PO DAILY 09/24/18 Carvedilol 6.25 mg PO DAILY 09/24/18 Hydroxyzine HCl 10 mg PO PRN PRN 09/24/18 Isosorbide Mononitrate [Imdur] 60 mg PO DAILY 09/24/18 Levetiracetam 500 mg PO BID 09/24/18 Amlodipine [Norvasc] 5 mg PO DAILY #30 tab 09/25/18 Following Prescrptions Were Given to Patient: Amlodipine [Norvasc] 5 mg PO DAILY #30 tab Primary Care Physician: Care Physician,No Primary [NON-STAFF] - Please Follow Up With: Burak Cain MD When: 1 week Please Follow Up With: Jaswant Vásquez MD When: 1-2 weeks Patient Instructions: What Is Angina? Disposition: Home Minutes spent on discharge:: 40 Patient Condition:: Stable Medical Necessity - Tobacco Use Smoking Status: Current every day smoker Tobacco Use: Cigarettes Meaningful Use Info Meaningful Use Diagnoses (Choose all that apply): None applicable Code Visit Inpatient E&M: 96847 Disch Hosp
[2018-09-25 11:50] VITALS: PULSE 65
== END 2018-09-25 13:15 | disposition home or self-care (01) | DRG 287 ==
LOC: ED 04:33 → ICU 04:38 → PCU 09-25 07:02 → ICU 09-25 07:11
PROVIDERS: Admitting Provider Hospitalist; Emergency Provider Emergency Medicine; Family Provider Family Medicine; PCP Family Medicine; Referring Provider Internal Medicine Cardiovascular Disease; Visit Provider Student in an Organized Health Care Education/Training Program
DX: I25.119 Atherosclerotic heart disease of native coronary artery with unspecified angina pectoris (principal); Z68.42 Body mass index [BMI] 45.0-49.9, adult; F17.210 Nicotine dependence, cigarettes, uncomplicated; G40.909 Epilepsy, unspecified, not intractable, without status epilepticus; R00.1 Bradycardia, unspecified; E66.9 Obesity, unspecified; I25.2 Old myocardial infarction; Z95.5 Presence of coronary angioplasty implant and graft
CPT/HCPCS: 36415; 71045; 80048; 84484; 84703; 85025; 85347; 85379; 85610; 85730; 93005; 93458; 99284; C1760; J7030; A4216; C1769; C1894; J0583; J2405; Q9967

== ENCOUNTER 2019-06-10 18:05 | Emergency (ER) | payer OTHER, SELFPAY ==
[2018-09-24 04:50] VITALS: BMI 45.6
[2019-06-10 18:07] VITALS: BP 146/88; PULSE 86; RESP 18; TEMP 36.1; O2SAT 95; BMI 42.8
--- NOTE | 2019-06-10 18:20 | ED.VIS.GEN ---
History of Present Illness Chief Complaint: Lower Extremity Injury Informant: Patient Onset: Today Context: Sudden Onset Timing: Continuous Quality: Pain Location: Dorsum right foot Current Severity: Mild Maximum Severity: Severe Worsened by: Touch or movement Relieved by: Nothing Associated Symptoms: No associated symptoms Narrative: It is a 49-year-old woman who dropped a large block on her foot. She complained of pain over the right mid dorsal foot. She denies paresthesia, anesthesia motor weakness. Denies prior fracture injury to the foot. Prior similar symptoms: No Recent Illness/Hospitalization: No - Past Medical History (1) Coronary artery vasospasm Status: Acute (2) STEMI (ST elevation myocardial infarction) Status: Acute Past Medical History - Allergies and Home Meds Allergies/Adverse Reactions: Allergies codeine Adverse Reaction (Verified 06/10/19 18:06) Other CHEST PAINS phenytoin [From Dilantin] Adverse Reaction (Verified 06/10/19 18:06) Chest tightness Primary Care Physician: Care Physician,No Primary [NON-STAFF] - Prior records reviewed: Yes Surgical History: appendectomy, - - Patient reported that at all her abdominal organs were outside so she had surgery to put her organs back. (?omaphalocele/gastroschisis) Lives: Spouse/ Significant Other Smoking Status: Current every day smoker Alcohol: Rare Drugs: None Review of Systems Gastrointestinal: Denies: Nausea, Vomiting Musculoskeletal: Reports: Swelling, Extremity Pain. Denies: Myalgias, Arthralgias, Neck pain, Back pain Neurological: Denies: Weakness, Parasthesia, Numbness Hematologic: Denies: Easy bruising, Easy bleeding Allergy: Denies: Uticaria, Swelling of the mouth Physical Exam Vital Signs/Narrative: Vital Signs Temp Pulse Resp BP Pulse Ox 06/10/19 18:07 96.9 F L 86 18 146/88 H 95 Inital Vital Signs reviewed: Yes General: Well nourished, Well developed, Cachectic, Acute Distress Head: Normocephalic, Atraumatic Eyes: Perrl, EOMI. Negative for: Pale conjunctiva, Scleral icterus Cardiovascular: Regular rate, Regular rhythm Respiratory: No distress Extremities: No edema, Tenderness - There is some of the midfoot/tarsal bones. There is discoloration noted. PT pulses palpable. Difficult to palpate the DP because of pain. Skin: Normal color, No rash, Trauma Neurological: Alert, Oriented x3, Cranial nerves II-XII grossly intact, Normal Strength, Normal Sensation. Negative for: Normal Gait Psychological: Tearful Diagnostic/Tx/Re-eval Chest X-Ray - ED: Read by ED Physician Review x-ray reveals arthritic changes of the multiple medical tarsal bones. There is evidence of an old avulsion fracture navicular bone on the lateral. There is no evidence of acute fracture. - Medical Decision Making Foot was obtained to evaluate for contusion versus fracture. ED Disposition - Plan for ED Patient: Disposition: Home or Assisted Living Diagnosis: Contusion of right foot, initial encounter Instructions: CONTUSION, Foot Referrals: Care Physician,No Primary [NON-STAFF] - Isaías Mcdaniels MD [Primary Care Provider] - As Needed Additional Instructions: Rest, ice, elevation and anti-inflammatory
--- NOTE | 2019-06-10 18:50 | RAD_ITS ---
STUDY: X-RAY - RIGHT FOOT CLINICAL: Female, 49 years old. Dorsal pain TECHNIQUE: 3 view(s) of the foot. COMPARISON: None. FINDINGS: Normal talus, and tarsal bones. Calcaneal spurs Normal visualized subtalar, talonavicular, calcaneocuboid, tarsal and tarsometatarsal articulations. Normal metatarsi. Normal metatarsophalangeal joint of the great toe. Normal tibial and fibular sesamoid bones. Normal interphalangeal joint of the great toe. Normal phalanges of the great toe. Degenerative arthrosis of the second and third metatarsophalangeal joints with flattening of the distal metatarsal heads. Normal interphalangeal joints and phalanges of the lesser toes. The soft tissue structures are unremarkable. RAD/Foot min 3 Views IMPRESSION: Calcaneal spurs with degenerative changes in the second and third metatarsophalangeal joints. No demonstrated fracture or suspicious osseous lesion Electronically Signed: Leroy Rich MD at 19:07 EDT , Service support ,
[2019-06-10 20:06] VITALS: BP 136/94; PULSE 75; RESP 18; O2SAT 97
== END 2019-06-10 20:06 | disposition home or self-care (01) ==
PROVIDERS: Emergency Provider Emergency Medicine; Family Provider Family Medicine; PCP Family Medicine
DX: S90.31XA Contusion of right foot, initial encounter (principal); M19.071 Primary osteoarthritis, right ankle and foot; W22.8XXA Striking against or struck by other objects, initial encounter; Y93.9 Activity, unspecified; Y92.9 Unspecified place or not applicable; I25.2 Old myocardial infarction; I20.1 Angina pectoris with documented spasm; Z79.82 Long term (current) use of aspirin; Z79.899 Other long term (current) drug therapy; F17.200 Nicotine dependence, unspecified, uncomplicated
CPT/HCPCS: 73630; 99282

== ENCOUNTER 2020-11-18 15:14 | Observation (INO) | payer OTHER, SELFPAY ==
[2020-11-18] VITALS (9 sets, daily range): BP systolic 115–128; BP diastolic 60–81; PULSE 59–79; RESP 15–18; TEMP 36.6–36.8; O2SAT 94–96; BMI 46.5; BMI 46.3; BMI 46.4
--- NOTE | 2020-11-18 15:33 | EKG12_ITS ---
Test Reason : CP Blood Pressure : / mmHG Vent. Rate : 065 BPM Atrial Rate : 065 BPM P-R Int : 130 ms QRS Dur : 078 ms QT Int : 408 ms P-R-T Axes : 005 007 032 degrees QTc Int : 424 ms Normal sinus rhythm Normal ECG Confirmed by MAKSIM KIMBALL, CARLITO ([id number]), news videotape editor EILEEN HENDERSON ([id number]) on 11/21/2020 12:20:13 PM Referred By: RU Confirmed By:CARLITO SCHAEFFER MD
--- NOTE | 2020-11-18 15:33 | RAD_ITS ---
STUDY: X-RAY CHEST REASON FOR EXAM: Female, 50 years old. chest pain TECHNIQUE: AP COMPARISON: 09/24/2018 FINDINGS: EKG leads project over the chest. The lungs are clear and expanded. There is no demonstrated pleural abnormality. Normal size heart. Normal mediastinum and rupa. Normal visualized pulmonary arteries. Normal visualized aortic arch and descending thoracic aorta. Normal visualized thoracic spine. Normal visualized ribs, clavicles, and shoulders. There is no demonstrated abnormality of the visualized soft tissue structures of the upper abdomen. RAD/Chest 1 View (Portable) IMPRESSION: Stable, nonacute portable x-ray examination of the chest. Electronically Signed: Agustin Lawrence MD (Brooks) at 16:14 EST , Service support ,
--- NOTE | 2020-11-18 15:34 | ED.DCSUM_ITS ---
- ER Visit Summary Date of Service: 11/18/20 Chief Complaint: [Chest pain] History of Present Illness: The patient is a 50 F [presents to the emergency department with complaint of chest pain that she has had since around 4 PM yesterday. Patient states that she was at work when she developed pain in her left arm and as well as chest and back. Patient has had similar pain in the past and she states that she has had several MIs and had a stent put in about 8 years ago. Patient denies diabetes, hypertension, or high cholesterol. She denies recent travel or surgery. No history of PE or DVT. EMS did give patient aspirin and nitro and her pain did improve and does have some mild discomfort in her arm currently but no chest pain.] Physical Examination: [HEENT-PERRLA, EOMI. Cranial nerves II through XII grossly intact. TMs clear. Mucous membranes moist. No adenopathy. Cardiovascular-regular rate and rhythm without murmur or ectopy Lungs-clear to auscultation, chest wall stable without crepitus or subcu emphysema Abdomen-normoactive bowel sounds, soft, nontender, no rebound or rigidity, no peritoneal signs. Extremities-intact ?4, normal range of motion, normal pulses, atraumatic] Test Results: [EKG obtained arrival shows sinus rhythm with a ventricular rate of 65 bpm with no acute ST segment changes.] Emergency Department Course and Treatment: [EKG obtained on arrival shows sinus rhythm with a ventricular rate of 65 bpm with no acute segment changes. CBC with differential showed a white of 7.5, hemoglobin 14, hematocrit 45, platelet 248. Chemistries unremarkable. Troponin less than 0.015. D-dimer is less than 0.27. Chest x-ray view obtained interpreted by myself as no acute disease process without evidence of infiltrate or pneumothorax or pneumomediastinum. Radiology in agreement.] Treatment Plan: [Admit for further work-up and evaluation of her chest pain] Disposition: [Admit] Impression: [Chest pain-rule out acute coronary syndrome] This note was generated with [employer] software. It may contain incorrect words, spelling, and punctuation that were not noted in review of the chart prior to signing ED Disposition - Plan for ED Patient: Referrals: Isaías Mcdaniels MD [Primary Care Provider] -
[2020-11-18 15:42] LABS: Absolute Lymphocyte Count 2.27 X10^3/uL (0.83-4.51); Absolute Neutrophil Count 4.3 X10^3/uL (2.0-7.7); Basophil# 0.03 X10^3/uL; Basophil% 0.4 % (0-1); Eosinophil# 0.23 X10^3/uL; Eosinophils% 3.1 % (0-5); Hematocrit 45.2 % (37-47); Hemoglobin 14.3 g/dL (12.0-15.0); Lymphocyte # 2.27 X10^3/ul (4.0); Lymphocyte % 30.3 % (19-41); Mean Corp Hgb Conc 31.6 g/dL (32-36); Mean Corpuscular Hgb 29.3 pg (27.0-32.0); Mean Corpuscular Volume 92.6 fL (81-99); Mean Platelet Vol. 9.6 fl (6.2-12.0); Monocyte# 0.66 X10^3/uL; Monocyte% 8.8 % (0-10); NRBC Flagged by Analyzer 0 % (0-5); Neutrophil # 4.27 X10^3/uL (2.7-7.7); Neutrophil % 57.1 % (47-70); Platelet Count 248 K/mm3 (150-450); RBC Distribution Width CV 13.8 % (11.6-14.6); RBC Distribution Width SD 47.3 fl (35.1-43.9); Red Blood Count 4.88 M/mm3 (4.2-5.4); White Blood Count 7.5 K/mm3 (4.4-11.0)
[2020-11-18] MEDS: Nitroglycerin Oint 1 INCH PACKET TRANSDERM. (15:46)
[2020-11-18] MEDS: 0.9% Normal Saline 1,000 ML 150 ML IV (15:47)
[2020-11-18 16:00] LABS: Anion Gap 4 (5-15); BUN 14 mg/dL (7-18); BUN/Creat Ratio 20.4 RATIO (10-20); Calcium,Total 8.5 mg/dL (8.5-10.1); Chloride 109 mmol/L (98-107); Creatinine, Serum 0.68 mg/dL (0.55-1.02); EST Glomerular Filtration Rate 96 mL/min (>60); Est Glom Filt Rate - Afr Amer 116 mL/min (>60); Estimated Creatinine Clearance 105.84 ml/min; Glucose 142 mg/dL (74-106); Potassium 4.1 mmol/L (3.5-5.1); Sodium Level 140 mmol/L (136-145)
[2020-11-18 16:03] LABS: D-Dimer Quantitative (DVT/PE) <= 0.27 FEU/ug/m (0.27-0.49)
--- NOTE | 2020-11-18 17:07 | PCM.HP.STD ---
Problem List (1) Chest pain Status: Acute (2) Hyperlipidemia Status: Chronic (3) Seizure disorder Status: Chronic (4) Hypertension Status: Chronic (5) Coronary artery disease Status: Chronic Comment: Status post stent. (6) STEMI (ST elevation myocardial infarction) Status: Chronic History of Present Illness Date of Admission: 11/18/20 Chief Complaint: Chest pain. The patient is a 50 year old F with past medical history as mentioned above presented to the emergency room because of chest pain. Her symptoms started yesterday around 4 PM when she was walking, sitting in her chair, started having left-sided chest pain, dull aching pain, constant, was about 7 out of 10 in severity, radiates to the left arm, associated with dizziness and without aggravating or relieving factors. Her pain has been constant since yesterday. She denied associated shortness of breath, syncope or presyncope. After she received Nitropaste in the ED, her chest pain came down to 1 out of 10 in severity. In the emergency department, her vital signs were stable. Her routine blood work was unremarkable. Chest x-ray showed no acute findings. EKG revealed normal sinus rhythm, normal QRS, normal RI interval, normal QTC, no acute ischemic changes. First troponin is negative. D-dimer was normal. She is being admitted for chest pain for evaluation. Past Medical History Past Medical History (Chronic Problems): Chronic Problems (Last Reviewed 09/24/18 @ 05:[address] Reymundo Kerr MD) Hyperlipidemia (Chronic) Seizure disorder (Chronic) Hypertension (Chronic) Coronary artery disease (Chronic) Status post stent. STEMI (ST elevation myocardial infarction) (Chronic) Medical History: Medical History (Last Reviewed 09/24/18 @ 05:[address] Reymundo Kerr MD) Epilepsy G40.909 Allergies codeine Adverse Reaction (Verified 06/10/19 18:06) Other CHEST PAINS phenytoin [From Dilantin] Adverse Reaction (Verified 06/10/19 18:06) Chest tightness Home Medications: Ambulatory Orders Medication Instructions Recorded Aspirin 81 mg PO DAILY 09/24/18 Atorvastatin Calcium 80 mg PO DAILY 09/24/18 Carvedilol 6.25 mg PO DAILY 09/24/18 Hydroxyzine HCl 10 mg PO PRN PRN 09/24/18 Isosorbide Mononitrate [Imdur] 60 mg PO DAILY 09/24/18 Levetiracetam 1,000 mg PO BREAKFAST 09/24/18 Amlodipine [Norvasc] 5 mg PO DAILY #30 tab 09/25/18 Levetiracetam 1,500 mg PO QHS 06/10/19 Penicillin Vk [Pen-Vee K , 500 mg PO 4X/DAY 11/18/20 V-Cillin K] Surgical History: Surgical History (Last Updated 09/24/18 @ 05:[address] Reymundo Kerr MD) History of heart artery stent Z95.5 Surgical History: cholecystectomy, - - Surgery for cleft lip and palate, surgery for gastroschisis. Tubal ligation. 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 Reymundo Kerr MD) Other Myocardial infarction Paternal Family History: Family History (Last Updated 09/24/18 @ 05:[address] Reymundo Kerr MD) Other Myocardial infarction Review of Systems Constitutional: Denies: Anorexia, Chills, Fever, Weakness Eyes: Denies: Blurred vision, Double vision, Drainage, Redness HEENT: Denies: Difficulty Hearing, Ear Pain, Eye Pain, Nasal Congestion, Sore Throat Cardiovascular: Reports: Chest Pain, Light Headedness. Denies: Edema, Heaviness, Orthopnea, Palpitations, Paroxysmal Noc. Dyspnea, Syncope Respiratory: Denies: Cough, Pleuritic Pain, Shortness of Breath, Sputum production, Wheezing Gastrointestinal: Denies: Abdominal Pain, Constipation, Diarrhea, Nausea, Vomiting Genitourinary: Denies: Dysuria, Frequency, Hematuria Musculoskeletal: Denies: Arm Pain, Back Pain, Foot Pain Skin: Denies: Dryness, Rash Neurological: Denies: Balance problems, Double vision, Change in Speech, Slurred speech, Confusion, Headaches, Incoordination Psychiatric: Denies: Anxiety, Depression Endocrine: Denies: Change in Body Habitus, Polydipsia, Polyuria VTE Information - Inpt Only VTE Present on Admission: No VTE Mechan Device Prophylaxis: None VTE Pharm Prophylaxis ordered?: No - Physical Exam Vitals/I&O's: Vital Signs Temp Pulse Resp BP Pulse Ox 98.0 F 59 L 17 128/70 H 94 11/18/20 17:00 11/18/20 17:00 11/18/20 17:00 11/18/20 17:00 11/18/20 17:00 Oxygen Delivery Method Room Air Weight: 324 lb 4.8 oz Body Mass Index (BMI) 46.5 General: Alert, Oriented x3, Cooperative, No apparent distress HEENT: Atraumatic, PERRLA, EOMI, Normocephalic Oral: Moist Mucosa, No Gingival or Mucosal Lesions/ Ulcerations Neck: Supple, No JVD, Negative Carotid Bruits, Trachea Midline, Thyroid Normal Size and Texture Lungs: Clear to auscultation, Normal air movement, No rhonchi, No wheeze, No rales Cardiovascular: Regular rate, Regular Rhythm, Normal S1, Normal S2, PMI Normal Abdomen: Bowel Sounds Present, Soft, Non Tender, Non-Distended, No Hepato-splenomegaly, Obese Extremities: No clubbing, No cyanosis, No edema Skin: No rashes, No breakdown Lymphatic: No Cervical, Supraclavicular, or Inguinal Adenopathy Neurological: Cranial nerves II-XII grossly intact, Motor Exam 5/5 strength throughout Psych/Mental Status: Normal Affect, Appropriate, Alert and oriented to time, place, person, mood and affect Laboratory Results 11/18/20 15:00: WBC 7.5, RBC 4.88, Hgb 14.3, Hct 45.2, MCV 92.6, MCH 29.3, MCHC 31.6 L, RDW Std Deviation 47.3 H, RDW Coeff of Brandi 13.8, Plt Count 248, MPV 9.6, Immature Gran % (Auto) 0.300, Neut % (Auto) 57.1, Lymph % (Auto) 30.3, [place] % (Auto) 8.8, Eos % (Auto) 3.1, Baso % (Auto) 0.4, Absolute Neuts (auto) 4.3, Absolute Lymphs (auto) 2.27, Nucleated RBC % 0 11/18/20 15:00: D-Dimer Quant (PE/DVT) <= 0.27 11/18/20 15:00: Sodium 140, Potassium 4.1, Chloride 109 H, Carbon Dioxide 27.0, Anion Gap 4 L, BUN 14, Creatinine 0.68, Estim Creat Clear Calc 105.84, Est GFR (MDRD) Af Amer 116, Est GFR (MDRD) Non-Af 96, BUN/Creatinine Ratio 20.4 H, Glucose 142 H, Calcium 8.5, Troponin I < 0.015 Clinical Impression(s) from Imaging Studies Chest X-Ray 11/18/20 15:33 IMPRESSION: Stable, nonacute portable x-ray examination of the chest. Electronically Signed: Agustin Lawrence MD (Brooks) at 16:14 EST , Service support , Current Medications Sodium Chloride () 1,000 mls @ 150 mls/hr IV .[id number] ALEXANDRA Last Admin: 11/18/20 15:47 Dose: 150 mls/hr Documented by: Assessment/Plan All Active Problems (Last Reviewed 09/24/18 @ 05:[address] Reymundo Kerr MD) Chest pain (Acute) This is a 50 years old female patient presented to the emergency room because of chest pain and she is being admitted for evaluation. #1 chest pain: Initial EKG showed no acute ischemic changes. Troponin was negative. D-dimer was normal. Chest x-ray showed no acute findings. MABLE score is 3. Patient history of CAD status post stent back in 2014. She had a history of STEMI back in September,, underwent cardiac catheterization that showed no new significant lesions, symptoms were attributed to coronary vasospasm. Plan: Admit to PCU for observation, cardiac monitoring, serial cardiac enzymes, repeat EKG tomorrow morning, Tylenol as needed, sublingual nitro as needed for chest pain, Zofran as needed, will check hemoglobin A1c, nuclear stress test after tomorrow morning if cardiac enzymes are negative. #2 CAD status post stent: EKG reviewed as above, troponin is negative. Continue aspirin, statins, Coreg, nitrate. #3 hypertension: Blood pressure stable, continue Norvasc and Coreg as well as nitrate. #4 hyperlipidemia: Continue statins. #5 seizure disorder: Stable, continue Keppra. #6 DVT prophylaxis: Low risk patient, no prophylaxis indicated. This note was generated with [employer] software. It may contain incorrect words, spelling, and punctuation that were not noted in checking the note before signing. OBSV E&M: [id number] Initial observation care L3
--- NOTE | 2020-11-18 17:26 | EKG12_ITS ---
Test Reason : CP ADMISSION Blood Pressure : / mmHG Vent. Rate : 060 BPM Atrial Rate : 060 BPM P-R Int : 144 ms QRS Dur : 076 ms QT Int : 432 ms P-R-T Axes : -19 012 036 degrees QTc Int : 432 ms Normal sinus rhythm Normal ECG Confirmed by MAKSIM KIMBALL, CARLITO ([id number]), school photograph editor EILEEN HENDERSON ([id number]) on 11/21/2020 12:49:42 PM Referred By: NATALIIA Confirmed By:CARLITO SCHAEFFER MD
[2020-11-18 18:56] LABS: Hemoglobin A1c 5.7 % (3.8-5.6)
[2020-11-18] MEDS: Atorvastatin Calcium 80 MG Tablet PO (22:17)
[2020-11-18] MEDS: levETIRAcetam 500 MG Tablet 1500 MG PO (22:18)
[2020-11-19] VITALS (9 sets, daily range): BP systolic 115–136; BP diastolic 63–78; PULSE 68–81; RESP 16–18; TEMP 35.5–36.9; O2SAT 91–93
--- NOTE | 2020-11-19 05:55 | EKG12_ITS ---
Test Reason : AM EKG Blood Pressure : / mmHG Vent. Rate : 063 BPM Atrial Rate : 063 BPM P-R Int : 138 ms QRS Dur : 078 ms QT Int : 406 ms P-R-T Axes : 019 007 024 degrees QTc Int : 415 ms Normal sinus rhythm Normal ECG When compared with ECG of 18-NOV-2020 18:07, MANUAL COMPARISON REQUIRED, DATA IS UNCONFIRMED Confirmed by MAKSIM KIMBALL, CARLITO ([id number]), slot editor EILEEN HENDERSON ([id number]) on 11/21/2020 12:47:48 PM Referred By: LUCY Confirmed By:CARLITO SCHAEFFER MD
--- NOTE | 2020-11-19 08:08 | PN_ITS ---
Patient Problems: Active and Suspected Problems (Last Reviewed 09/24/18 @ 05:[address] Reymundo Kerr MD) Chest pain (Acute) Subjective: Chief complaint: Follow-up after admission for chest pain for evaluation. Patient seen and examined. No acute events overnight. Today, she denied any more chest pain. She is feeling better. Her vital signs are stable. - Physical Exam Vitals/I&O's: Vital Signs Temp Pulse Resp BP Pulse Ox 98.1 F 70 18 118/63 91 11/19/20 04:00 11/19/20 04:00 11/19/20 04:00 11/19/20 04:00 11/19/20 07:00 Oxygen Delivery Method Room Air Weight: 323 lb 3.163 oz Body Mass Index (BMI) 46.3 Intake and Output for Last 24 Hours 11/17/20 11/18/20 11/19/20 23:59 23:59 23:59 Intake Total 337.5 / 337.5 Balance 337.5 / 337.5 General: Alert, Oriented x3, Cooperative, No apparent distress HEENT: Atraumatic, PERRLA, EOMI, Normocephalic Oral: Moist Mucosa, No Gingival or Mucosal Lesions/ Ulcerations Neck: Supple, No JVD, Negative Carotid Bruits, Trachea Midline, Thyroid Normal Size and Texture Lungs: Clear to auscultation, Normal air movement, No rhonchi, No wheeze, No rales Cardiovascular: Regular rate, Regular Rhythm, Normal S1, Normal S2, PMI Normal Abdomen: Bowel Sounds Present, Soft, Non Tender, Non-Distended, No Hepato- splenomegaly, Obese Extremities: No clubbing, No cyanosis, No edema Skin: No rashes, No breakdown Lymphatic: No Cervical, Supraclavicular, or Inguinal Adenopathy Neurological: Cranial nerves II-XII grossly intact, Neuro grossly intact Psych/Mental Status: Normal Affect, Appropriate Laboratory Results 11/18/20 15:00: WBC 7.5, RBC 4.88, Hgb 14.3, Hct 45.2, MCV 92.6, MCH 29.3, MCHC 31.6 L, RDW Std Deviation 47.3 H, RDW Coeff of Brandi 13.8, Plt Count 248, MPV 9.6, Immature Gran % (Auto) 0.300, Neut % (Auto) 57.1, Lymph % (Auto) 30.3, [place] % (Auto) 8.8, Eos % (Auto) 3.1, Baso % (Auto) 0.4, Absolute Neuts (auto) 4.3, Absolute Lymphs (auto) 2.27, Nucleated RBC % 0 11/18/20 15:00: D-Dimer Quant (PE/DVT) <= 0.27 11/18/20 15:00: Sodium 140, Potassium 4.1, Chloride 109 H, Carbon Dioxide 27.0, Anion Gap 4 L, BUN 14, Creatinine 0.68, Estim Creat Clear Calc 105.84, Est GFR (MDRD) Af Amer 116, Est GFR (MDRD) Non-Af 96, BUN/Creatinine Ratio 20.4 H, Glucose 142 H, Calcium 8.5, Troponin I < 0.015 11/18/20 15:00: Hemoglobin A1c 5.7 H 11/18/20 18:00: Troponin I < 0.015 11/18/20 21:27: Troponin I < 0.015 Current Medications Acetaminophen (Acetaminophen 325 Mg Tablet) 650 mg PO Q6H PRN PRN PRN Reason: Pain Score 1-10/Temp > 100.7 F Amlodipine Besylate (Amlodipine 5 Mg Tablet) 5 mg PO DAILY [facility] Aspirin (Aspirin 81 Mg Tab.Chew) 81 mg PO DAILYCM [facility] Atorvastatin Calcium (Atorvastatin Calcium 80 Mg Tablet) 80 mg PO QHS [facility] Last Admin: 11/18/20 22:17 Dose: 80 mg Documented by: Carvedilol (Carvedilol 6.25 Mg Tablet) 6.25 mg PO DAILY [facility] Sodium Chloride () 250 mls @ 15 mls/hr IV .[id number] PRN PRN Reason: Saline Flush Sodium Chloride () 250 mls @ 15 mls/hr IV .[id number] PRN PRN Reason: Additional IVPB Infusion Isosorbide Mononitrate (Isosorbide Mononitrate 60 Mg Tablet) 60 mg PO DAILY [facility] Levetiracetam (Levetiracetam 500 Mg Tablet) 1,000 mg PO BREAKFAST [facility] Levetiracetam (Levetiracetam 500 Mg Tablet) 1,500 mg PO QHS [facility] Last Admin: 11/18/20 22:18 Dose: 1,500 mg Documented by: Nitroglycerin (Nitroglycerin (Inpatient Use) 0.4 Mg Tab.Subl) 0.4 mg SUBLINGUAL Q5M PRN PRN Reason: CARDIAC/CHEST PAIN Ondansetron HCl (Ondansetron 4 Mg/2 Ml Vial) 4 mg IV Q8H PRN PRN PRN Reason: NAUSEA/VOMITING Sodium Chloride (0.9% Saline Lock 10 Ml Syringe) 10 - 40 ml IV UD PRN PRN Reason: SALINE FLUSH Zolpidem Tartrate (Zolpidem Tartrate 5 Mg Tablet) 5 mg PO QHS PRN PRN PRN Reason: INSOMNIA Medical Necessity - Tobacco Use Smoking Status: Current every day smoker Tobacco Use: Cigarettes Assessment/Plan All Active Problems (Last Reviewed 09/24/18 @ 05:[address] Reymundo Kerr MD) Chest pain (Acute) This is a 50 years old female patient presented to the emergency room because of chest pain and she is being admitted for evaluation. #1 chest pain: Today, patient is chest pain-free. Repeat EKG was unremarkable. Troponin was negative x3. Her vital signs were stable. D-dimer was normal. Chest x-ray showed no acute findings. MABLE score is 3. Hemoglobin A1c was 5.7%. Patient history of CAD status post stent back in 2014. She had a history of STEMI back in September,, underwent cardiac catheterization that showed no new significant lesions, symptoms were attributed to coronary vasospasm. Plan for stress test tomorrow morning. #2 CAD status post stent: EKG reviewed as above, troponin is negative. Continue aspirin, statins, Coreg, nitrate. #3 hypertension: Blood pressure stable, continue Norvasc and Coreg as well as nitrate. #4 hyperlipidemia: Continue statins. #5 seizure disorder: Stable, continue Keppra. #6 DVT prophylaxis: Low risk patient, no prophylaxis indicated. This note was generated with [employer] dictation software. It may contain incorrect words, spelling, and punctuation that were not noted in checking the note before signing. OBSV E&M: [id number] Subsequent observation care L2
[2020-11-19] MEDS: 0.9% Saline Lock 10 ML Syringe IV ×2 (10:04→17:57)
[2020-11-19] MEDS: levETIRAcetam 500 MG Tablet 1000 MG PO (10:05)
[2020-11-19] MEDS: Aspirin 81 MG TAB.CHEW PO (10:05)
[2020-11-19] MEDS: Carvedilol 6.25 MG Tablet PO (10:06)
[2020-11-19] MEDS: Isosorbide Mononitrate 60 MG Tablet PO (10:06)
[2020-11-19] MEDS: amLODIPine 5 MG Tablet PO (10:06)
[2020-11-19] MEDS: Atorvastatin Calcium 80 MG Tablet PO (22:50)
[2020-11-19] MEDS: levETIRAcetam 500 MG Tablet 1500 MG PO (22:51)
[2020-11-20] VITALS (7 sets, daily range): BP systolic 115–142; BP diastolic 69–85; PULSE 63–72; RESP 16–18; TEMP 35.5–36.9; O2SAT 92–95
--- NOTE | 2020-11-20 05:55 | EKG12_ITS ---
Test Reason : AM EKG Blood Pressure : / mmHG Vent. Rate : 065 BPM Atrial Rate : 065 BPM P-R Int : 140 ms QRS Dur : 084 ms QT Int : 410 ms P-R-T Axes : 015 007 036 degrees QTc Int : 426 ms Normal sinus rhythm Normal ECG When compared with ECG of 19-NOV-2020 06:04, MANUAL COMPARISON REQUIRED, DATA IS UNCONFIRMED Confirmed by MAKSIM KIMBALL, CARLITO ([id number]), video tape editor EILEEN HENDERSON ([id number]) on 11/21/2020 12:47:41 PM Referred By: LUIS Confirmed By:CARLITO SCHAEFFER MD
[2020-11-20] MEDS: Aspirin 81 MG TAB.CHEW PO (06:46)
--- NOTE | 2020-11-20 10:44 | DCINST_ITS ---
- Discharge Diagnoses Current Active Problems: Current Active and Chronic Problems (Last Reviewed 09/24/18 @ 05:[address] Reymundo Kerr MD) Chest pain (Acute) Hyperlipidemia (Chronic) Seizure disorder (Chronic) Hypertension (Chronic) Coronary artery disease (Chronic) Status post stent. STEMI (ST elevation myocardial infarction) (Chronic) Reason(s) for Visit for Discharge Instructions: Chest pain/MERI rule out You will use the following diet at home:: No restrictions Your food should be the consistency of: Regular Your liquids should be the consistency of: Regular/Thin Discharge Activity: Return to Normal Activity Pending Tests on Discharge: Stress echoacardiogram Allergies/Adverse Reactions: Allergies codeine Adverse Reaction (Verified 06/10/19 18:06) Other CHEST PAINS phenytoin [From Dilantin] Adverse Reaction (Verified 06/10/19 18:06) Chest tightness Medications to take at Discharge Aspirin 81 mg PO DAILY 09/24/18 Atorvastatin Calcium 80 mg PO DAILY 09/24/18 Carvedilol 6.25 mg PO DAILY 09/24/18 Hydroxyzine HCl 10 mg PO PRN PRN 09/24/18 Isosorbide Mononitrate [Imdur] 60 mg PO DAILY 09/24/18 Levetiracetam 1,000 mg PO BREAKFAST 09/24/18 Amlodipine [Norvasc] 5 mg PO DAILY #30 tab 09/25/18 Levetiracetam 1,500 mg PO QHS 06/10/19 Penicillin Vk [Pen-Vee K , V-Cillin K] 500 mg PO 4X/DAY 11/18/20 Primary Care Physician: Isaías Mcdaniels MD [Primary Care Provider] - Please follow up with your Primary Care Physician in: Within the next week Test Results: Test results from this visit will be discussed in further detail at your follow- up appointment, if applicable. Proposed Discharge Date: 11/20/20
--- NOTE | 2020-11-20 11:21 | PHA.DC.MR ---
Pharmacy Service has performed discharge medication reconciliation for this patient. No new medications at time of discharge medication review. medications reviewed are from previously reported home medications. Home Medications Aspirin 81 mg PO DAILY 09/24/18 Atorvastatin Calcium 80 mg PO DAILY 09/24/18 Carvedilol 6.25 mg PO DAILY 09/24/18 Hydroxyzine HCl 10 mg PO PRN PRN 09/24/18 Isosorbide Mononitrate [Imdur] 60 mg PO DAILY 09/24/18 Levetiracetam 1,000 mg PO BREAKFAST 09/24/18 Amlodipine [Norvasc] 5 mg PO DAILY #30 tab 09/25/18 Levetiracetam 1,500 mg PO QHS 06/10/19 Penicillin Vk [Pen-Vee K , V-Cillin K] 500 mg PO 4X/DAY 11/18/20 The patient's discharge medication list was reviewed for discrepancies and discrepancies were resolved.
[2020-11-20] MEDS: Carvedilol 6.25 MG Tablet PO (11:58)
[2020-11-20] MEDS: levETIRAcetam 500 MG Tablet 1000 MG PO (11:58)
[2020-11-20] MEDS: amLODIPine 5 MG Tablet PO (11:58)
[2020-11-20] MEDS: Isosorbide Mononitrate 60 MG Tablet PO (11:58)
--- NOTE | 2020-11-20 12:21 | PCM.DC.SUM ---
<Pablo Malhotra - Last Filed: 11/20/20 14:15> Discharge Date and Diagnosis - Problem List Patient Problems: Active and Suspected Problems (Last Reviewed 09/24/18 @ 05:[address] Reymundo Kerr MD) Chest pain (Acute) Date of Admission: 11/18/20 Date of Discharge: 11/20/20 - Primary Discharge Diagnosis Acute Problems: Active Problems (Last Reviewed 09/24/18 @ 05:[address] Reymundo Kerr MD) Chest pain/ACS rule out (Acute) - Secondary Discharge Diagnosis Chronic Problems: Chronic Problems (Last Reviewed 09/24/18 @ 05:[address] Reymundo Kerr MD) Hyperlipidemia (Chronic) Seizure disorder (Chronic) Hypertension (Chronic) Coronary artery disease (Chronic) Status post stent. STEMI (ST elevation myocardial infarction) (Chronic) Hospital Course and Treatment Imaging Results: 11/20/20 09:30 Nuclear Stress Test - Chemical [NM] Routine Clinical Impression(s) from Imaging Studies Chest X-Ray 11/18/20 15:33 IMPRESSION: Stable, nonacute portable x-ray examination of the chest. Electronically Signed: Agustin Lawrence MD ([place]) at 16:14 EST , Service support , Clinical Impression(s) from Imaging Studies Chest X-Ray 11/18/20 15:33 IMPRESSION: Stable, nonacute portable x-ray examination of the chest. Electronically Signed: Agustin Lawrence MD (Brooks) at 16:14 EST , Service support , Operations: None Procedures: 2-D Echocardiogram, Nuclear stress test Summary of Care Provided: This patient is a 50-year-old female who presented to the ED with a chief complaint of chest pain on 11/18/2020. Pertinent patient history includes CAD status post stent in 2014, history of STEMI in September 2018. EKG at admission demonstrated no ischemic changes. MABLE score at admission was 3. Patient was admitted to the PCU for observation, cardiac monitoring, serial cardiac enzymes, repeat EKG, nuclear stress test and cardiac enzymes. Cardiac stress test revealed no evidence of ischemia and a preserved ejection fraction. Patient will be discharged later on today. 1) Unspecified chest pain/ACS rule out Assessment - D-Dimer not elevated - No elevation in Troponin over cylce - Chest x-ray demonstrated no acute findings ? Cardiac stress test unremarkable Plan -Discharge today ?Continue on current aspirin and statin regiment ?Follow-up with primary care provider in the next week 2) CAD s/p stent Assessment -EKG revealed no ischemic changes ?Troponins negative Plan -Continue on Norvasc and Coreg regimen DVT prophylaxis: Low risk patient, no prophylaxis indicated. Patient seen by Pablo Malhotra PA-C, under the supervision of Dr. Ann Patient Problems: Active and Suspected Problems (Last Reviewed 09/24/18 @ 05:[address] Reymundo Kerr MD) Chest pain (Acute) Subjective: Patient is a pleasant 50-year-old female. Patient reports no chest pain, shortness or palpitations. Patient reports resolution of her symptoms at admission and desires to go home. Objective: Clinical Impression(s) from Imaging Studies Chest X-Ray 11/18/20 15:33 IMPRESSION: Stable, nonacute portable x-ray examination of the chest. Electronically Signed: Agustin Lawrence MD ([place]) at 16:14 EST , Service support , - Physical Exam Vitals/I&O's: Vital Signs Temp Pulse Resp BP Pulse Ox 98.4 F 70 18 142/69 H 95 11/20/20 11:55 11/20/20 11:55 11/20/20 11:55 11/20/20 11:55 11/20/20 11:55 Oxygen Delivery Method Room Air Weight: 323 lb 3.163 oz Body Mass Index (BMI) 46.3 Intake and Output for Last 24 Hours 11/18/20 11/19/20 11/20/20 23:59 23:59 23:59 Intake Total 337.5 / 337.5 450 / 450 0 / 0 Balance 337.5 / 337.5 450 / 450 0 / 0 General: Alert, Oriented x3, Cooperative HEENT: Atraumatic, PERRLA, EOMI, Normocephalic Neck: Supple, No JVD, Negative Carotid Bruits Lungs: Clear to auscultation, Normal air movement Cardiovascular: Regular rate, No murmurs Abdomen: Bowel Sounds Present, Soft, Non Tender Extremities: No edema, Capillary Refill Less than 3 Seconds Skin: No rashes, No breakdown Musculoskeletal: No Tenderness to Palpation of Joints or Extremities Neurological: Cranial nerves II-XII grossly intact Psych/Mental Status: Normal Affect, Appropriate Current Medications Acetaminophen (Acetaminophen 325 Mg Tablet) 650 mg PO Q6H PRN PRN PRN Reason: Pain Score 1-10/Temp > 100.7 F Amlodipine Besylate (Amlodipine 5 Mg Tablet) 5 mg PO DAILY [facility] Last Admin: 11/20/20 11:58 Dose: 5 mg Documented by: Aspirin (Aspirin 81 Mg Tab.Chew) 81 mg PO DAILYCM [facility] Last Admin: 11/20/20 06:46 Dose: 81 mg Documented by: Atorvastatin Calcium (Atorvastatin Calcium 80 Mg Tablet) 80 mg PO QHS [facility] Last Admin: 11/19/20 22:50 Dose: 80 mg Documented by: Carvedilol (Carvedilol 6.25 Mg Tablet) 6.25 mg PO DAILY [facility] Last Admin: 11/20/20 11:58 Dose: 6.25 mg Documented by: Sodium Chloride () 250 mls @ 15 mls/hr IV .[id number] PRN PRN Reason: Saline Flush Sodium Chloride () 250 mls @ 15 mls/hr IV .[id number] PRN PRN Reason: Additional IVPB Infusion Isosorbide Mononitrate (Isosorbide Mononitrate 60 Mg Tablet) 60 mg PO DAILY [facility] Last Admin: 11/20/20 11:58 Dose: 60 mg Documented by: Levetiracetam (Levetiracetam 500 Mg Tablet) 1,000 mg PO BREAKFAST [facility] Last Admin: 11/20/20 11:58 Dose: 1,000 mg Documented by: Levetiracetam (Levetiracetam 500 Mg Tablet) 1,500 mg PO QHS [facility] Last Admin: 11/19/20 22:51 Dose: 1,500 mg Documented by: Nitroglycerin (Nitroglycerin (Inpatient Use) 0.4 Mg Tab.Subl) 0.4 mg SUBLINGUAL Q5M PRN PRN Reason: CARDIAC/CHEST PAIN Ondansetron HCl (Ondansetron 4 Mg/2 Ml Vial) 4 mg IV Q8H PRN PRN PRN Reason: NAUSEA/VOMITING Sodium Chloride (0.9% Saline Lock 10 Ml Syringe) 10 - 40 ml IV UD PRN PRN Reason: SALINE FLUSH Last Admin: 11/19/20 17:57 Dose: 10 ml Documented by: Zolpidem Tartrate (Zolpidem Tartrate 5 Mg Tablet) 5 mg PO QHS PRN PRN PRN Reason: INSOMNIA Discharge Diet: No Restrictions Discharge Activity: Return to Normal Activity Home Medications: Medications to take at Discharge Aspirin 81 mg PO DAILY 09/24/18 Atorvastatin Calcium 80 mg PO DAILY 09/24/18 Carvedilol 6.25 mg PO DAILY 09/24/18 Hydroxyzine HCl 10 mg PO PRN PRN 09/24/18 Isosorbide Mononitrate [Imdur] 60 mg PO DAILY 09/24/18 Levetiracetam 1,000 mg PO BREAKFAST 09/24/18 Amlodipine [Norvasc] 5 mg PO DAILY #30 tab 09/25/18 Levetiracetam 1,500 mg PO QHS 06/10/19 Primary Care Physician: Isaías Mcdaniels MD [Primary Care Provider] - Please follow up with your Primary Care Physician in: Within the next week Medical Necessity - Tobacco Use Smoking Status: Current every day smoker Tobacco Use: Cigarettes Meaningful Use Info Meaningful Use Diagnoses (Choose all that apply): None applicable <Nino Ann - Last Filed: 11/20/20 14:45> Discharge Date and Diagnosis - Primary Discharge Diagnosis Acute Problems: Active Problems (Last Reviewed 09/24/18 @ 05:[address] Reymundo Kerr MD) Chest pain (Acute) - Secondary Discharge Diagnosis Chronic Problems: Chronic Problems (Last Reviewed 09/24/18 @ 05:[address] Reymundo Kerr MD) Hyperlipidemia (Chronic) Seizure disorder (Chronic) Hypertension (Chronic) Coronary artery disease (Chronic) Status post stent. STEMI (ST elevation myocardial infarction) (Chronic) Hospital Course and Treatment Imaging Results: 11/20/20 09:30 Nuclear Stress Test - Chemical [NM] Routine Summary of Care Provided: This patient was seen in conjunction with Pablo Malhotra PA-C, . I have independently interviewed and examined the patient and reviewed pertinent historical, laboratory, and other data. Please refer to Pablo Malhotra PA-C, cheryle for details of this patient's presentation, findings, and recommendations. I have reviewed Pablo Malhotra PA-C, note and concur with documented findings. In brief, patient is a 50-year-old lady medical history single for CAD with previous stent placement who presented with chest pain placed on a monitored bed [place] was ruled out with serial cardiac enzymes subsequently underwent a nuclear stress test which was negative for stress-induced ischemia Hospital course: As documented above - Physical Exam Vitals/I&O's: Vital Signs Temp Pulse Resp BP Pulse Ox 98.4 F 70 18 142/69 H 95 11/20/20 11:55 11/20/20 11:55 11/20/20 11:55 11/20/20 11:55 11/20/20 11:55 Oxygen Delivery Method Room Air Weight: 146.6 kg Body Mass Index (BMI) 46.3 Intake and Output for Last 24 Hours 11/18/20 11/19/20 11/20/20 23:59 23:59 23:59 Intake Total 337.5 / 337.5 450 / 450 0 / 0 Balance 337.5 / 337.5 450 / 450 0 / 0 OBSV E&M: [id number] Observation care discharge
--- NOTE | 2020-11-20 14:01 | STRESSREP ---
Stress Test Report Pharmacologic myocardial perfusion stress test. 50-year-old lady with a history of chest discomfort. Previous coronary artery disease noted. Stress protocol: Resting KG demonstrates sinus rhythm with a rate of 61 bpm normal intervals are noted resting blood pressure is 1 120/80 mmHg. 0.4 mg of regadenoson was infused per usual protocol followed by rapid venous saline flush injection continuous EKG monitoring was performed. The maximum heart rate attained was 93 bpm which was 55% of max impacted heart rate the maximum workload was 1 metabolic equivalent. At rest there were no ST or T wave changes noted to suggest abnormal flow reserve at peak infusion nonspecific ST changes were noted with no meet the criteria for ischemia. No clinical angina was noted the test was terminated due to completion of the protocol. The peak blood pressure was 1 and 32/70 4 mmHg. Myocardial perfusion protocol. 15.0 mCi of technetium 99m sestamibi was injected at rest. 0.4 mg of regadenoson was infused per usual protocol. Peak infusion 44.3 mCi of technetium 99m sestamibi was injected stress images were obtained stress and rest images were reconstructed and compared in the short axis vertical long horizontal long axis. Gated images were also obtained Perfusion SPECT analysis: Review of the stress images demonstrate mildly reduced uptake noted in the anterior wall on the stress images which appear to be persistent on the resting images. The above is likely secondary to anterior breast wall attenuation artifact. No obvious areas of reversibility are noted suggest ischemia. The rest of the neri appear to be well perfused. Gated SPECT analysis: The gated ejection fraction is normal. Conclusion: Pharmacologic myocardial perfusion stress test with no obvious ischemia noted. Anterior breast wall attenuation noted. Preserved ejection fraction.
== END 2020-11-20 10:46 | disposition home or self-care (01) ==
LOC: ED 15:43 → PCU 20:00
PROVIDERS: Hospitalist; Admitting Provider Family Medicine; Emergency Provider Emergency Medicine; PCP Family Medicine; Visit Provider Internal Medicine
DX: R07.89 Other chest pain (principal); E78.5 Hyperlipidemia, unspecified; I10 Essential (primary) hypertension; I25.2 Old myocardial infarction; I25.10 Atherosclerotic heart disease of native coronary artery without angina pectoris; G40.909 Epilepsy, unspecified, not intractable, without status epilepticus; Z95.5 Presence of coronary angioplasty implant and graft; Z79.899 Other long term (current) drug therapy; Z79.82 Long term (current) use of aspirin; F17.210 Nicotine dependence, cigarettes, uncomplicated
CPT/HCPCS: 36415; 71045; 78452; 80048; 83036; 84484; 85025; 85379; 93005; 93017; 96360; 96361; 99218; 99285; 99406; A9500; J7030; A4216; G0378; J2785

== ENCOUNTER 2021-03-14 04:23 | Emergency (ER) | payer OTHER, SELFPAY ==
[2020-11-18 17:40] VITALS: BMI 46.3
[2021-03-14 04:29] VITALS: BP 125/76; PULSE 71; RESP 18; TEMP 36.9; O2SAT 94; BMI 47.1
--- NOTE | 2021-03-14 04:36 | RAD_ITS ---
STUDY: X-RAY - RIGHT FOOT CLINICAL: Female, 50 years old. Pain after injury. TECHNIQUE: 3 view(s) of the foot. COMPARISON: June 10, 2019. FINDINGS: Normal talus, calcaneus, and tarsal bones. Normal visualized subtalar, talonavicular, calcaneocuboid, tarsal and tarsometatarsal articulations. Flattening of the head of the second and third metatarsals compatible with Freiberg disease unchanged. Normal metatarsophalangeal joint of the great toe. Normal tibial and fibular sesamoid bones. Normal interphalangeal joint of the great toe. Normal phalanges of the great toe. Normal second through fifth metatarsophalangeal joints. Normal interphalangeal joints and phalanges of the lesser toes. The soft tissue structures are unremarkable. RAD/Foot min 3 Views IMPRESSION: No acute findings in the foot. Electronically Signed: Gui Puga MD at 5:08 EDT , Service support ,
[2021-03-14] MEDS: Acetaminophen 500 MG Tablet 1000 MG PO (04:46)
--- NOTE | 2021-03-14 05:22 | ED.VIS.LOWEX ---
HPI History of Present Illness HPI Narrative: Patient injured her right fourth and fifth little toes. She accidentally kicked a couch just prior to arrival. No home treatment. Comes in for further evaluation. Current severity is moderate. Worse to walk on it. Chief Complaint: Lower Extremity Injury PFSH PFS Medical History Epilepsy H/O cleft lip Hypertension Myocardial infarct Home Medications aspirin 81 mg PO DAILY 09/24/18 [History Last Taken 09/23/18] atorvastatin 80 mg PO DAILY 09/24/18 [History Last Taken 09/23/18] carvedilol 6.25 mg PO DAILY 09/24/18 [History Last Taken 09/23/18] hydroxyzine HCl 10 mg PO PRN PRN 09/24/18 [History Last Taken 09/23/18] isosorbide mononitrate 60 mg PO DAILY 09/24/18 [History Last Taken 09/23/18] levetiracetam 1,000 mg PO BREAKFAST 09/24/18 [History Last Taken 09/23/18] amlodipine 5 mg PO DAILY #30 tab 09/25/18 [Rx Last Taken Unknown] levetiracetam 1,500 mg PO QHS 06/10/19 [History Last Taken Unknown] Allergy/AdvReac Type Severity Reaction Status Date / Time codeine AdvReac Other Verified 03/14/21 04:24 phenytoin [From Dilantin] AdvReac Chest Verified 03/14/21 04:24 tightness Family History Other Myocardial infarction Surgical History H/O tubal ligation History of heart artery stent S/P cholecystectomy Social History Smoking Status: Current every day smoker tobacco type: cigarettes ROS ROS ED ROS Narrative ROS General: Denies fever, chills, sweats Eyes: Denies visual changes, blurred vision, double vision ENT: Denies ear pain, rhinorrhea, sore throat Cardiovascular: Denies chest pain, palpitations, heart racing Respiratory: Denies dyspnea, cough, sputum, dyspnea on exertion, orthopnea,PND GI: Denies abdominal pain, nausea, vomiting, diarrhea, constipation, melena : Denies dysuria, hematuria, frequency Musculoskeletal: See HPI Skin: Denies rash, abscess, abrasions Neuro: Denies headache, weakness, paresthesia Psych: Denies depression, anxiety Endo: Denies polyuria, polydipsia, polyphagia Heme: Denies easy bruising, easy bleeding, lymphadenopathy Allergy: Denies hives, swelling EXAM Physical Exam Narrative Exam Narrative: Vital signs reviewed General: Well-nourished well-developed Head: Normocephalic atraumatic Eyes: Pupils equal round and reactive to light extraocular movements intact ENT: TMs clear no hemotympanum no trauma Neck: Nontender full range of motion Cardiovascular: Regular rate rhythm no murmurs normal S1-S2 Respiratory: No distress clear to auscultation bilaterally chest nontender Abdomen: Soft nontender nondistended normal bowel sounds no masses Back: Nontender no CVA tenderness Extremities: Tender right fourth and fifth little toes with decreased range of motion secondary to pain. No swelling Skin: Normal color no trauma Neuro alert oriented cranial nerves II through XII intact normal strength sensation reflexes Const Vital Signs: 03/14/21 04:29 Temperature 98.4 F Temperature Source Temporal Pulse Rate 71 Respiratory Rate 18 Blood Pressure 125/76 H Blood Pressure Mean 92 Pulse Ox 94 Oxygen Delivery Method Room Air MDM MDM MDM Narrative Medical decision making narrative: X-ray obtained by my interpretation shows a nondisplaced proximal phalanx fracture of the fifth little toe. Given rodrigo tape postop shoe. Given Tylenol. We will follow-up with podiatry Radiography Diagnostic Testing: Radiology Impression Foot X-Ray 03/14/21 04:36 IMPRESSION: No acute findings in the foot. Electronically Signed: Gui Puga MD at 5:08 EDT , Service support , Discharge Plan Triage Chief Complaint: Lower Extremity Injury ED Provider: Raimundo Manrique Dx/Rx/DC Orders Prescriptions: No Action atorvastatin 80 MG tablet 80 mg PO DAILY RF: 0 carvedilol 6.25 MG tablet 6.25 mg PO DAILY RF: 0 levetiracetam 500 MG tablet 1,000 mg PO BREAKFAST RF: 0 isosorbide mononitrate 60 MG tablet 60 mg PO DAILY RF: 0 aspirin 81 MG tablet,chewable 81 mg PO DAILY RF: 0 hydroxyzine HCl 10 MG tablet 10 mg PO PRN PRN (Reason: Anxiety) RF: 0 amlodipine 5 MG tablet 5 mg PO DAILY Qty: 30 RF: 1 levetiracetam 500 MG tablet 1,500 mg PO QHS RF: 0 Primary Care Provider: Isaías Mcdaniels
== END 2021-03-14 05:41 | disposition home or self-care (01) ==
LOC: ED 05:26
PROVIDERS: Emergency Provider Emergency Medicine; PCP Family Medicine
DX: S92.514A Nondisplaced fracture of proximal phalanx of right lesser toe(s), initial encounter for closed fracture (principal); W22.03XA Walked into furniture, initial encounter; Y93.9 Activity, unspecified; Y92.9 Unspecified place or not applicable; I10 Essential (primary) hypertension; I25.2 Old myocardial infarction; G40.909 Epilepsy, unspecified, not intractable, without status epilepticus; Z87.730 Personal history of (corrected) cleft lip and palate; Z79.82 Long term (current) use of aspirin; Z79.899 Other long term (current) drug therapy; F17.210 Nicotine dependence, cigarettes, uncomplicated
CPT/HCPCS: 73630; 99283